=== PATIENT | male | born 1940 | race Caucasian/White ===

== ENCOUNTER 2022-01-05 11:59 | Inpatient (IN) ==
[2022-01-05] MEDS ORDERED: 0.9 % SODIUM CHLORIDE 1,000 ML IV ONE (12:10)
[2022-01-05 12:26] LABS: POC Calcium, Ionized 1.23 (1.16-1.32); POC Creatinine 1.4 (0.6-1.2); POC Potassium 4.4 (3.3-5.1)
[2022-01-05 13:03] LABS: POC Calcium, Ionized 1.2 (1.16-1.32); POC Creatinine 1.4 (0.6-1.2); POC Potassium 4.7 (3.3-5.1)
--- NOTE | 2022-01-05 13:32 | XRay Report ---
CLINICAL INFORMATION: Dyspnea COMPARISON: 06/29/2021 and 09/14/2020 TECHNIQUE: Portable FINDINGS: Sternotomy noted. Cardiomediastinal silhouette is unremarkable. Large bullae dominates the right mid and lower lung region. There is moderate, predominantly interstitial, disease throughout the left lung and the right upper lobe which has worsened. Suspect, this represents edema superimposed upon interstitial fibrosis. Pulmonary vessels are obscured by the edema may be mildly distended. Right diaphragm is chronically elevated. No definite effusion. IMPRESSION: Suspect congestive heart failure superimposed upon interstitial fibrosis and COPD. Please correlate with physical exam findings and possibly serological BNP. This could also represent diffuse infection or inflammation superimposed upon interstitial fibrosis and COPD. Interpreted and Authenticated by: Christian Holt 01/05/22
--- NOTE | 2022-01-05 13:37 | Cat Scan Report ---
CLINICAL INFORMATION: Altered mental status. History of CVA COMPARISON: Brain MRI 12/30/2021 TECHNIQUE: 2.5 mm helical slices were obtained in the skull base to vertex. Following reconstruction, axial reformatted images were reviewed at bone and parenchymal windows. The exam was performed using radiation dose optimization techniques including, but not limited to, automated exposure control, adjustment of the mA and/or kV according to patient size and use of iterative reconstruction technique. FINDINGS: The ventricles, sulci, fissures, and cisterns are symmetrically enlarged compatible with moderate age-related atrophy. No extra-axial fluid collections are identified. Moderate patchy chronic ischemic changes, in the deep cerebral white matter, are expected for age. Moderate size remote infarct in the left parietal-occipital junction again noted There is no hemorrhage, mass effect, or edema. Bone windows show no osseous abnormality. IMPRESSION: Moderate atrophy and chronic ischemic changes in the deep cerebral white matter-expected for age. Moderate remote infarct left temporal occipital junction-again noted. No acute findings Interpreted and Authenticated by: Christian Holt 01/05/22
[2022-01-05] MEDS: LACTATED RINGERS 1,000 ML IV SCH ×3 (13:39→17:43)
--- NOTE | 2022-01-05 13:47 | Cat Scan Report ---
CLINICAL INFORMATION: Back pain following trauma COMPARISON: None. TECHNIQUE: 0.625 mm helical slices were obtained from the mid C7 to the mid L1 vertebral bodies. Following reconstruction, 2.5 mm coronal, sagittal, and axial reformations (angle to the disc spaces) were processed. Exam was reviewed at bone and soft tissue windows.The exam was performed using radiation dose optimization techniques including, but not limited to, automated exposure control, adjustment of the mA and/or kV according to patient size and use of iterative reconstruction technique. FINDINGS: The thoracic spine is normal in curvature and alignment. Minimal chronic wedging of the T1-T6 vertebral bodies appreciated. No acute fractures. The thoracic cord is unremarkable. The lungs are incompletely imaged but show moderate mixed interstitial/alveolar airspace disease in the visualized central aspect of the lungs. There is also interstitial fibrosis, pulmonary vascular congestion and severe bronchiectasis in the right upper lobe. At C6-7, moderate broad disc spur complex results in moderate central canal severe left and moderate right IV foraminal thickening of the exiting left C7 nerve root. Thoracic disc show degeneration without significant protrusion or extrusion. Central canal and IV foramen are normal width at all thoracic levels. IMPRESSION: 1. No acute fracture or other acute posttraumatic change. Mild chronic wedging of the T1-T6 vertebral bodies. 2. C6-7: Moderate broad disc spur complex resulting in moderate central canal, severe left and moderate right IV foraminal narrowing. Impingement of the exiting left C7 nerve root. There are minimal calcified protrusions at T7-T8 and T8-9 but no central canal or IV foraminal narrowing. Interpreted and Authenticated by: Christian Holt 01/05/22
[2022-01-05 14:19] LABS: Alcohol, Blood < 10.0 mg/dL; Alcohol,Blood < 0.010 gm/dL (<0.010)
--- NOTE | 2022-01-05 14:21 | Emergency Department Note ---
Altered Mental Status HPI General Chief Complaint: Altered Mental Status Stated Complaint: Confusion Time Seen by Provider: 01/05/22 12:01 Source: patient, EMS and other (Longtime friend) Mode of arrival: EMS Limitations: altered mental status History of Present Illness HPI Narrative: William Cortes is an 81-year-old male who presents emergency department via EMS with altered mental status. He is an unreliable historian. The patient reports he fell out of his rocking chair this morning at approximately 8:30 AM, and was found in his chair at 10 AM by his longtime friend. The patient reports he "fell through the floor." He says he was "seeing spots" after his fall. He denies loss of consciousness. He denies striking his head. The patient reports he is having no pain. The patient's friend reports that the patient had 2 shots of whiskey this morning, and he is unsure if this is normal. The patient's friend reports that he has a significant number of medications in blister packs. No medications were brought in by EMS. Patient denies headache, chest pain, back pain, extremity pain, nausea, vomiting, black or bloody stools, diarrhea, constipation, and all other acute complaints at this time. Given this, the patient is unclear of what city he is in, despite the fact that he is lived here for decades. MD complaint: altered mental status and confusion Onset (ago): hour(s) Treatments prior to arrival: IV fluid Related Data Home Medications Medication Instructions Recorded Confirmed benazepril 20 mg tablet 20 mg PO QDAY 09/24/15 12/29/21 blood sugar diagnostic (Accu-Chek 09/24/15 12/29/21 Marivel Plus test strips) clopidogrel 75 mg tablet (Plavix) 75 mg PO QDAY 09/24/15 12/29/21 pantoprazole 40 mg tablet,delayed 40 mg PO QDAY 09/24/15 12/29/21 release fluticasone propionate 50 2 spray intranasal QDAY 04/19/20 12/29/21 mcg/actuation nasal spray,suspension gabapentin 300 mg capsule 600 mg PO QHS 04/19/20 12/29/21 meloxicam 7.5 mg tablet 7.5 mg PO QDAY 12/17/20 12/29/21 Previous Rx's Medication Instructions Recorded fluticasone fur. 100 mcg-umeclid 1 inh inhalation Q24H #60 ea 12/29/21 62.5 mcg-vilant 25 mcg inhalat.powder (Trelegy Ellipta) Allergies Allergy/AdvReac Type Severity Reaction Status Date / Time hydroxyzine [From Vistaril] Allergy Severe Unknown Verified 01/05/22 12:00 meperidine [From Demerol] Allergy Severe Unknown Verified 01/05/22 12:00 oxycodone [From Percodan] Allergy Severe Unknown Verified 01/05/22 12:00 propoxyphene Allergy Severe Unknown Verified 01/05/22 12:00 [From Darvocet-N] Review of Systems ROS ROS Narrative: Narrative: Limitations: ROS unobtainable due to patients medical condition (Altered mental status, unreliable historian.) PFSH Narrative Patient History Narrative: Narrative: Medical/Surgical/Family History All Active Problems CAD (coronary artery disease) (Chronic) COPD (chronic obstructive pulmonary disease) (Chronic) Essential hypertension (Chronic) Pulmonary fibrosis (Chronic) Arthritis, lumbar spine (Chronic) Spinal stenosis, lumbar (Chronic) KRISTOPHRE (obstructive sleep apnea) (Chronic) CPAP/BiPAP dependence (Chronic) Periodic limb movement disorder (Chronic) 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) BPH (benign prostatic hyperplasia) (Chronic) GERD (gastroesophageal reflux disease) (Chronic) History of adenomatous polyp of colon (Chronic) Hyperlipidemia (Chronic) Low back pain (Chronic) Bladder obstruction (Chronic) History of transient ischemic attack (Chronic) Erectile dysfunction (Chronic) Lumbar back pain (Chronic) Degenerative disc disease at L5-S1 level (Chronic) Leg weakness, bilateral (Chronic) Pulmonary congestion (Chronic) Pure hypercholesterolemia (Chronic) Unspecified dysplasia of prostate (Chronic) custodial (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 (Chronic) Fall from toilet seat (Chronic) Ribs, multiple fractures (Chronic) Pulmonary infiltrate (Chronic) Prostate irregularity (Chronic) Elevated PSA (Chronic) BPH without obstruction/lower urinary tract symptoms (Chronic) Bladder outlet obstruction (Chronic) Poor urinary stream (Chronic) Pressure ulcer, buttock (Chronic) Skin infection (Chronic) custodial (current) use of opiate analgesic (Chronic) 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 (Chronic) Dependence on supplemental oxygen (Chronic) Other emphysema (Chronic) Other allergic rhinitis (Chronic) Status post coronary artery bypass graft (Chronic) History of percutaneous transluminal coronary angioplasty (Chronic) Memory impairment (Chronic) Other polyuria (Chronic) Diastasis recti (Chronic) Sinus tarsi syndrome (Chronic) Multiple fractures of ribs of left side (Chronic) Chronic low back pain (Chronic) Pain in toes of both feet (Chronic) Pain in joints of both feet (Chronic) Other specified dermatitis (Chronic) Hallux rigidus, acquired (Chronic) Onychomycosis (Chronic) Seborrheic dermatitis (Chronic) History of CVA (cerebrovascular accident) (Chronic) Contact dermatitis and eczema (Chronic) Dermatitis, perioral (Chronic) Anterior chest wall pain (Chronic) Inguinal hernia (Chronic) Difficulty urinating (Chronic) Groin pain (Chronic) Pain of both hip joints (Chronic) Overweight (Chronic) Rosacea (Chronic) Exostosis (Chronic) Interstitial lung disease (Chronic) Diverticulosis (Chronic) Left rib fracture (Chronic) Chills (Chronic) Dysuria (Chronic) Urinary hesitancy (Chronic) Stiffness in joint (Chronic) Joint pain (Chronic) Back pain (Chronic) BPH with obstruction/lower urinary tract symptoms (Chronic) Elevated PSA (Acute) Weakness (Chronic) Decubitus ulcer (Chronic) History of tobacco use (Acute) Non compliance w medication regimen (Chronic) Infected wound (Acute) Gluteal pain (Acute) Medicare annual wellness visit, subsequent (Acute) Diabetes mellitus with neuropathy (Chronic) Acute facial pain (Acute) Acute leg pain (Acute) Altered mental status (Acute) Self-care deficit for medication management (Acute) Medical History (Updated 01/05/22 @ 18:23 by Maria Eugenia Porter PA-C) Alcohol abuse Suggested by neighbors, patient denies 09/09 Anterior chest wall pain Arthritis, lumbar spine Atypical chest pain Back pain Bladder obstruction Progressive bladder outlet obstruction Bladder outlet obstruction BPH without obstruction/lower urinary tract symptoms CAD (coronary artery disease) s/p CABG Chills Chronic low back pain Colonic polyp Contact dermatitis and eczema COPD (chronic obstructive pulmonary disease) CPAP/BiPAP dependence Degenerative disc disease at L5-S1 level Dependence on supplemental oxygen Nocturnal Dermatitis, perioral Diabetes mellitus with neuropathy Diastasis recti Difficulty urinating Diverticulosis Dyspnea Dysuria Elevated PSA Erectile dysfunction Essential hypertension Exostosis Fall from toilet seat Gastric mucosal hypertrophy without mention of hemorrhage GERD (gastroesophageal reflux disease) Groin pain Hallux rigidus, acquired Heartburn History of adenomatous polyp of colon History of CVA (cerebrovascular accident) History of esophageal stricture History of tobacco use quit ~ 1989 History of transient ischemic attack Hyperlipidemia Inguinal hernia Insomnia disorder related to known organic factor Interstitial lung disease Joint pain Left rib fracture Leg weakness, bilateral custodial (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 Clopidogrel (Plavix) 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 custodial (current) use of opiate analgesic Low back pain Lumbar back pain Medicare annual wellness visit, subsequent Memory impairment Migraine headache Multiple fractures of ribs of left side Non compliance w medication regimen Onychomycosis KRISTOPHER (obstructive sleep apnea) Other allergic rhinitis Other emphysema Other polyuria Other specified dermatitis Overweight Pain in joints of both feet Pain in toes of both feet Pain of both hip joints Periodic limb movement disorder Poor urinary stream Pressure ulcer, buttock Prostate irregularity Pulmonary congestion Pulmonary fibrosis Pulmonary infiltrate Pure hypercholesterolemia Pyloritis Ribs, multiple fractures Rosacea Seborrheic dermatitis Self-care deficit for medication management Sinus tarsi syndrome Skin infection SOB (shortness of breath) Spinal stenosis, lumbar Stiffness in joint TIA (transient ischemic attack) Unable to care for self Unspecified dysplasia of prostate Urinary hesitancy Surgical History H/O colonoscopy July 2011-diverticulosis and hyperplastic polyp-repeat 3 years hx rapid former adenomatous polyps. History of appendectomy (~1957) History of bilateral inguinal hernia repair 12/28/2020 History of carpal tunnel release Left, 1987 History of cataract extraction with IOL implants 1988 History of herniorrhaphy Hiatral 1988, Hiatal hernia-1996 History of hiatal hernia (~2009) Revision History of percutaneous transluminal coronary angioplasty History of rotator cuff surgery 1987 left; 1988 right; History of surgery Cystourethroscopy, urethral calibration History of surgery Right femoral tunnel release, 1988 Hx of CABG (~1992) Three-vessel; patient reports occurred after a lower extremity study with a piece of the catheter breaking off requiring intervention to retrieve it. Family History Father , at 85 from prostate cancer Prostate cancer Brother Diabetes High cholesterol Sister Asthma Family/Other Brain cancer Social History Smoking Status: Former smoker Alcohol Intake Frequency: does not drink Substance Use: does not use Exam Narrative Narrative: General: Alert, pleasant, conversant, NAD HEENT: Mask in place per COVID protocol, EOMI, PERRL Chest/respirations: Symmetric chest wall expansion, end expiratory rhonchi, adequate tidal volume and respiratory effort, speaks in complete paragraphs without difficulty CV: RRR/no MRG, cap refill less than 2 seconds Abdomen: NABs, soft, NT/ND Extremities: MAEW, equal strength bilaterally Skin: Normal warm and dry; at the lower back/flank on the right side, there is a skin tear consistent with the patient's described fall. Neuro: Oriented only to self. Patient reports today is Sunday, that he is at the hospital because he fell from his chair, but he does not know where we are. General Limitations: altered mental status Course Course Course Narrative: Patient presents to the emergency department via EMS, called by his friend of several decades because the patient was exhibiting altered mental status. The patient reports he fell out of his chair, was down for an unknown period of time this morning. The patient is oriented only to self. Despite being from this area, he states he does not know what town he is in. The patient reportedly had 2 shots of whiskey this morning, but no alcohol is detected in his blood. The patient has a heart rate around 60 and a blood pressure hovering around 80 systolic. Given the patient is an unreliable historian and a good exam is unable to obtain, significant imaging is ordered. At the time of admission, talk screen remains pending. No urine has been collected, so UA has not been completed. As the labs have finally returned, it is noted red blood cell count is 11.5 with a left shift at 82.3% and absolute neutrophils at 9.49. Hematocrit is within reference range and platelets are 218. Creatinine is elevated at 1.4, glucose is 156, and troponin is negative at less than 0.02. It is at this point that the patient is accepted for admission by Dr. Thomas, and further lab testing is sought, including ammonia level, blood cultures, venous lactic acid, VBG, and ProBNP. Reevaluation(s) Reevaluation #1: Still trying to obtain an accurate med list for this patient. His pharmacy has been contacted. A second pharmacy has been contacted. Awaiting a callback from the patient's neighbor who has access to his home and the "load" of medications he has in blister packs. Time: 14:30 Reevaluation #2: pt accepted for admission by Dr Thomas at 1715 Vital Signs Vital signs: Vital Signs Temperature 95.5 F L 01/05/22 12:00 Pulse Rate 55 L 01/05/22 12:00 Respiratory Rate 20 01/05/22 12:00 Blood Pressure 78/35 01/05/22 12:00 Pulse Oximetry (%) 95 01/05/22 12:00 Oxygen Delivery Method 01/05/22 12:00 Temperature 95.5 F L 01/05/22 12:00 Pulse Rate 56 L 01/05/22 14:20 Respiratory Rate 18 01/05/22 17:42 Blood Pressure 104/62 01/05/22 17:42 Pulse Oximetry (%) 97 01/05/22 14:20 Oxygen Delivery Method 01/05/22 12:26 MDM MDM Narrative Medical decision making narrative: Narrative: Lab Data Result diagrams: 01/05/22 12:35 Labs: Lab Results 01/05/22 01/05/22 01/05/22 Range/Units 12:24 12:35 12:45 WBC 11.5 H (4.5-11.0) K/mcL RBC 4.70 (4.63-6.08) M/mcL Hgb 15.1 (13.7-17.5) g/dL Hct 44.9 (40.1-51.0) % POC Hct 43.0 (41-55) MCV 95.5 (80.0-100.0) fL MCH 32.1 (26.0-34.0) pg MCHC 33.6 (31.0-36.0) g/dL RDW 12.7 (11.5-14.5) % Plt Count 218 (140-440) K/mcL MPV 9.0 (8.8-12.5) fL Immature Gran % (Auto) 0.5 (0.0-0.5) % Neut % (Auto) 82.3 H (38.0-78.0) % Lymph % (Auto) 11.4 L (15.5-49.0) % [place] % (Auto) 5.2 (1.0-12.0) % Eos % (Auto) 0.3 (0.0-7.0) % Baso % (Auto) 0.3 (0.0-2.0) % Lymph # (Auto) 1.31 L (1.50-4.80) K/mcL [place] # (Auto) 0.60 (0.10-0.90) K/mcL Eos # (Auto) 0.04 (0.00-0.70) K/mcL Baso # (Auto) 0.04 (0.00-0.30) K/mcL Immature Gran # 0.06 H (0.00-0.05) K/mcl Absolute Neutrophils 9.49 H (1.80-8.00) K/mcL ABG Methemoglobin (0.4-1.5) % VBG pH (7.32-7.42) U VBG pCO2 (41.0-51.0) mmHg VBG pO2 (25.0-40.0) mmHg VBG HCO3 (24.0-28.0) mmol/L VBG Total CO2 (25.0-29.0) mmol/L VBG O2 Saturation (40.0-70.0) % VBG Base Excess (-2-3) Carboxyhemoglobin (0.0-1.5) % THgb Total Hemoglobin (13.5-16.5) gm/Dl POC Sodium 138 (133-145) POC Potassium 4.4 (3.3-5.1) POC Chloride 101 (96-108) POC Total CO2 28.0 (22-30) POC BUN 13 (6-20) POC Creatinine 1.4 H (0.6-1.2) POC Glucose 172 H (70-105) POC WB Ioniz Calcium 1.23 (1.16-1.32) Ethyl Alcohol mg/dL < 10.0 mg/dL Ethyl Alcohol g/dL < 0.010 (<0.010) gm/dL POC Troponin I (0.00-0.08) 01/05/22 01/05/22 01/05/22 Range/Units 12:51 12:59 17:45 WBC (4.5-11.0) K/mcL RBC (4.63-6.08) M/mcL Hgb (13.7-17.5) g/dL Hct (40.1-51.0) % POC Hct 40.0 L (41-55) MCV (80.0-100.0) fL MCH (26.0-34.0) pg MCHC (31.0-36.0) g/dL RDW (11.5-14.5) % Plt Count (140-440) K/mcL MPV (8.8-12.5) fL Immature Gran % (Auto) (0.0-0.5) % Neut % (Auto) (38.0-78.0) % Lymph % (Auto) (15.5-49.0) % [place] % (Auto) (1.0-12.0) % Eos % (Auto) (0.0-7.0) % Baso % (Auto) (0.0-2.0) % Lymph # (Auto) (1.50-4.80) K/mcL [place] # (Auto) (0.10-0.90) K/mcL Eos # (Auto) (0.00-0.70) K/mcL Baso # (Auto) (0.00-0.30) K/mcL Immature Gran # (0.00-0.05) K/mcl Absolute Neutrophils (1.80-8.00) K/mcL ABG Methemoglobin 0.1 L (0.4-1.5) % VBG pH 7.36 (7.32-7.42) U VBG pCO2 44.4 (41.0-51.0) mmHg VBG pO2 48.5 H (25.0-40.0) mmHg VBG HCO3 24.5 (24.0-28.0) mmol/L VBG Total CO2 25.8 (25.0-29.0) mmol/L VBG O2 Saturation 81.1 H (40.0-70.0) % VBG Base Excess -1 (-2-3) Carboxyhemoglobin 5.2 H (0.0-1.5) % THgb Total Hemoglobin 14.4 (13.5-16.5) gm/Dl POC Sodium 138 (133-145) POC Potassium 4.7 (3.3-5.1) POC Chloride 102 (96-108) POC Total CO2 28.0 (22-30) POC BUN 13 (6-20) POC Creatinine 1.4 H (0.6-1.2) POC Glucose 156 H (70-105) POC WB Ioniz Calcium 1.20 (1.16-1.32) Ethyl Alcohol mg/dL mg/dL Ethyl Alcohol g/dL (<0.010) gm/dL POC Troponin I < 0.02 (0.00-0.08) ED POC Tests ED POC Tests: SERGE - Influenza A Negative SERGE - Influenza B Negative SERGE - SARS Antigen Negative Discharge Plan Patient/Caregiver Discharge Instructions Pt seen by BARREL [employer] SOLDERER/PA only: Yes Clinical Impression: Altered mental status Patient Disposition: Still a Patient Follow up with: Dax Zheng MD [Primary Care Provider] - Prescriptions: No Action clopidogrel [Plavix] 75 mg tablet 75 mg PO QDAY (DME) blood sugar diagnostic [Accu-Chek Marivel Plus test strp] strip See Dose Instructions .ROUTE .MEDSUPPLY Rx Instructions: As directed pantoprazole 40 mg tablet,delayed release (DR/EC) 40 mg PO QDAY benazepril 20 mg tablet 20 mg PO QDAY gabapentin 300 mg capsule 600 mg PO QHS fluticasone propionate 50 mcg/actuation spray,suspension 2 spray intranasal QDAY Rx Instructions: administer into each nostril meloxicam 7.5 mg tablet 7.5 mg PO QDAY Trelegy Ellipta 100-62.5-25 mcg blister with device 1 inh inhalation Q24H Qty: 60 11RF Hold Instructions: Doctor's Order
[2022-01-05 14:57] LABS: Basophils # (Auto) 0.04 K/mcL (0.00-0.30); Basophils % (Auto) 0.3 % (0.0-2.0); Eosinophils # (Auto) 0.04 K/mcL (0.00-0.70); Eosinophils % (Auto) 0.3 % (0.0-7.0); Hematocrit 44.9 % (40.1-51.0); Hemoglobin 15.1 g/dL (13.7-17.5); Lymphocytes # (Auto) 1.31 K/mcL (1.50-4.80); Lymphocytes % (Auto) 11.4 % (15.5-49.0); Mean Cell Volume 95.5 fL (80.0-100.0); Mean Corpuscular HGB Conc 33.6 g/dL (31.0-36.0); Monocytes % (Auto) 5.2 % (1.0-12.0); Neutrophils % (Auto) 82.3 % (38.0-78.0); Platelet Count 218 K/mcL (140-440); Red Cell Distribution Width 12.7 % (11.5-14.5); WBC 11.5 K/mcL (4.5-11.0)
--- NOTE | 2022-01-05 15:04 | Cat Scan Report ---
CLINICAL INFORMATION: Trauma COMPARISON: Plain films 12/22/2015 TECHNIQUE: 0.625 mm helical slices were obtained from the mid T12 through mid S2 vertebral bodies. Following reconstruction, 2.5 mm coronal, sagittal, and axial reformations (angle to the disc spaces) were processed. Exam was reviewed at bone and soft tissue windows.The exam was performed using radiation dose optimization techniques including, but not limited to, automated exposure control, adjustment of the mA and/or kV according to patient size and use of iterative reconstruction technique. FINDINGS: Moderate dextroscoliosis of the lumbar spine with the apex at approximate L2 appreciated. This progressed since the 2016 plain films. There is minimal chronic left lateral wedging of the L2-L3 and L4 vertebral bodies. No acute fracture. No celiac soft tissue abnormality. The T11-T12 and T12-L1 disc levels are normal. At L1-2, mild broad disc protrusion results in mild central canal and bilateral IV foraminal narrowing At L2-3, moderate broad disc protrusion with left-sided asymmetry and facet arthropathy result in moderate central canal and severe left lateral recess left IV foraminal narrowing with exiting left L2 and descending left L3 nerve root impingement. At L3-4, moderate broad disc protrusion with left-sided asymmetry and facet arthropathy result in moderate central canal and moderate bilateral lateral recess and IV foraminal narrowing. There is exiting L3 and descending L4 nerve root impingement At L4-5, moderate broad disc protrusion left-sided asymmetry facet arthropathy result in moderate central canal and severe right lateral recess and IV foraminal narrowing with impingement exiting right L4 and descending right L5 nerve roots. At L5-S1, moderate broad disc protrusion results in moderate right and mild left IV foraminal and mild central canal narrowing. There is impingement exiting L5 nerve roots. IMPRESSION: 1. No acute fracture or other acute posttraumatic change. 2. Multilevel degeneration. Interpreted and Authenticated by: Christian Holt 01/05/22
--- NOTE | 2022-01-05 17:56 | Internal Med History&Physical ---
HPI History of Present Illness Patient information: Note initiated : 01/05/22 at 5:43 pm Service Date, if different from initiated Date: [] Patient: William Cortes 81 y/o M admitted on for Confusion. Chief Complaint: [] History of present illness: Mr. Cortes is a 81 year old male with a history of hypertension, interstitial lung disease, COPD, CVA, degenerative disc disease, probable cognitive impairment, possible alcohol use disorder who was brought to the emergency department for a change in mental status. The patient reportedly fell out of his chair this morning. He reportedly had 2 shots of whiskey in the morning which is unusual for him. In the emergency department, the patient was initially hypotensive and given IV fluid. Temperature was 95.5 Fahrenheit, the patient had a mild leukocytosis of 11,500. The patient's creatinine was 1.4 consistent with an acute kidney injury. EKG showed sinus bradycardia with a heart rate of 58, no acute ischemic changes. Troponin was normal. Alcohol level was normal. Radiology reported the chest x-ray showing suspected congestive heart failure superimposed on interstitial fibrosis and COPD. CT head did not show any acute changes, there was a remote left temporal occipital junction infarct. The patient had an MRI brain without contrast on 12/30/2021 that showed an old infarct in the left temporal occipital boundary. The patient had a thoracic and lumbar spine without contrast that showed degenerative disc disease but no acute fractures. The patient's blood pressure did improve somewhat after IV fluid. Hospital medicine was consulted for hospital admission. The patient is unable to provide a good history, and is unclear what his baseline cognitive status is however review of the available clinic visit documentation suggest that he probably has significant cognitive impairment at baseline. Review of systems: Unable to obtain due to altered mental status. Physical exam Head: Atraumatic, normal inspection. Eyes: normal appearance, no scleral icterus. Neck: full ROM Respiratory: Bilateral crackles, no respiratory distress. Cardiovascular: Sternotomy scar, normal rate and rhythm, S1, S2. GI/Abdominal: soft, nontender, no guarding. Extremities: full range of motion, nontender. Neurological: CN II-XII intact, intact motor, intact sensation. Psychiatric: Impaired cognition and memory. 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) BPH (benign prostatic hyperplasia) (Chronic) GERD (gastroesophageal reflux disease) (Chronic) History of adenomatous polyp of colon (Chronic) Hyperlipidemia (Chronic) Low back pain (Chronic) Bladder obstruction (Chronic) History of transient ischemic attack (Chronic) Erectile dysfunction (Chronic) Lumbar back pain (Chronic) Degenerative disc disease at L5-S1 level (Chronic) Leg weakness, bilateral (Chronic) Pulmonary congestion (Chronic) Pure hypercholesterolemia (Chronic) Unspecified dysplasia of prostate (Chronic) termite helper (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 (Chronic) Fall from toilet seat (Chronic) Ribs, multiple fractures (Chronic) Pulmonary infiltrate (Chronic) Prostate irregularity (Chronic) Elevated PSA (Chronic) BPH without obstruction/lower urinary tract symptoms (Chronic) Bladder outlet obstruction (Chronic) Poor urinary stream (Chronic) Pressure ulcer, buttock (Chronic) Skin infection (Chronic) alf (current) use of opiate analgesic (Chronic) termite helper (current) use of 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 (Chronic) Dependence on supplemental oxygen (Chronic) Other emphysema (Chronic) Other allergic rhinitis (Chronic) Status post coronary artery bypass graft (Chronic) History of percutaneous transluminal coronary angioplasty (Chronic) Memory impairment (Chronic) Other polyuria (Chronic) Diastasis recti (Chronic) Sinus tarsi syndrome (Chronic) Multiple fractures of ribs of left side (Chronic) Chronic low back pain (Chronic) Pain in toes of both feet (Chronic) Pain in joints of both feet (Chronic) Other specified dermatitis (Chronic) Hallux rigidus, acquired (Chronic) Onychomycosis (Chronic) Seborrheic dermatitis (Chronic) History of CVA (cerebrovascular accident) (Chronic) Contact dermatitis and eczema (Chronic) Dermatitis, perioral (Chronic) Anterior chest wall pain (Chronic) Inguinal hernia (Chronic) Difficulty urinating (Chronic) Groin pain (Chronic) Pain of both hip joints (Chronic) Overweight (Chronic) Rosacea (Chronic) Exostosis (Chronic) Interstitial lung disease (Chronic) Diverticulosis (Chronic) Left rib fracture (Chronic) Chills (Chronic) Dysuria (Chronic) Urinary hesitancy (Chronic) Stiffness in joint (Chronic) Joint pain (Chronic) Back pain (Chronic) BPH with obstruction/lower urinary tract symptoms (Chronic) Elevated PSA (Acute) Weakness (Chronic) Decubitus ulcer (Chronic) History of tobacco use (Acute) Non compliance w medication regimen (Chronic) Infected wound (Acute) Gluteal pain (Acute) Medicare annual wellness visit, subsequent (Acute) Diabetes mellitus with neuropathy (Chronic) Acute facial pain (Acute) Acute leg pain (Acute) Altered mental status (Acute) Self-care deficit for medication management (Acute) Medical History (Updated 01/05/22 @ 18:23 by Maria Eugenia Porter PA-C) Alcohol abuse Suggested by neighbors, patient denies 09/09 Anterior chest wall pain Arthritis, lumbar spine Atypical chest pain Back pain Bladder obstruction Progressive bladder outlet obstruction Bladder outlet obstruction BPH without obstruction/lower urinary tract symptoms CAD (coronary artery disease) s/p CABG Chills Chronic low back pain Colonic polyp Contact dermatitis and eczema COPD (chronic obstructive pulmonary disease) CPAP/BiPAP dependence Degenerative disc disease at L5-S1 level Dependence on supplemental oxygen Nocturnal Dermatitis, perioral Diabetes mellitus with neuropathy Diastasis recti Difficulty urinating Diverticulosis Dyspnea Dysuria Elevated PSA Erectile dysfunction Essential hypertension Exostosis Fall from toilet seat Gastric mucosal hypertrophy without mention of hemorrhage GERD (gastroesophageal reflux disease) Groin pain Hallux rigidus, acquired Heartburn History of adenomatous polyp of colon History of CVA (cerebrovascular accident) History of esophageal stricture History of tobacco use quit ~ 1989 History of transient ischemic attack Hyperlipidemia Inguinal hernia Insomnia disorder related to known organic factor Interstitial lung disease Joint pain Left rib fracture Leg weakness, bilateral termite helper (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 Clopidogrel (Plavix) termite helper (current) use of 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 alf (current) use of opiate analgesic Low back pain Lumbar back pain Medicare annual wellness visit, subsequent Memory impairment Migraine headache Multiple fractures of ribs of left side Non compliance w medication regimen Onychomycosis KRISTOPHER (obstructive sleep apnea) Other allergic rhinitis Other emphysema Other polyuria Other specified dermatitis Overweight Pain in joints of both feet Pain in toes of both feet Pain of both hip joints Periodic limb movement disorder Poor urinary stream Pressure ulcer, buttock Prostate irregularity Pulmonary congestion Pulmonary fibrosis Pulmonary infiltrate Pure hypercholesterolemia Pyloritis Ribs, multiple fractures Rosacea Seborrheic dermatitis Self-care deficit for medication management Sinus tarsi syndrome Skin infection SOB (shortness of breath) Spinal stenosis, lumbar Stiffness in joint TIA (transient ischemic attack) Unable to care for self Unspecified dysplasia of prostate Urinary hesitancy Surgical History H/O colonoscopy July 2011-diverticulosis and hyperplastic polyp-repeat 3 years hx rapid former adenomatous polyps. History of appendectomy (~195) History of bilateral inguinal hernia repair 12/28/2020 History of carpal tunnel release Left, 1987 History of cataract extraction with IOL implants 1988 History of herniorrhaphy Hiatral 1988, Hiatal hernia-1996 History of hiatal hernia (~2009) Revision History of percutaneous transluminal coronary angioplasty History of rotator cuff surgery 1987 left; 1988 right; History of surgery Cystourethroscopy, urethral calibration History of surgery Right femoral tunnel release, 1988 Hx of CABG (~1992) Three-vessel; patient reports occurred after a lower extremity study with a piece of the catheter breaking off requiring intervention to retrieve it. 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 smoking status: Former smoker smoking status start date: 02/19/58 smoking status stop date: 02/19/89 alcohol intake frequency: does not drink substance use type: does not use MEDS/ALLERGIES Home Medications and Allergies Home Medications Medication Instructions Recorded Confirmed Type benazepril 20 mg tablet 20 mg PO QDAY 09/24/15 12/29/21 History blood sugar diagnostic (Accu-Chek 09/24/15 12/29/21 History Marivel Plus test strips) clopidogrel 75 mg tablet (Plavix) 75 mg PO QDAY 09/24/15 12/29/21 History pantoprazole 40 mg tablet,delayed 40 mg PO QDAY 09/24/15 12/29/21 History release fluticasone propionate 50 2 spray intranasal QDAY 04/19/20 12/29/21 History mcg/actuation nasal spray,suspension gabapentin 300 mg capsule 600 mg PO QHS 04/19/20 12/29/21 History meloxicam 7.5 mg tablet 7.5 mg PO QDAY 12/17/20 12/29/21 History fluticasone fur. 100 mcg-umeclid 1 inh inhalation Q24H #60 ea 12/29/21 12/29/21 Rx 62.5 mcg-vilant 25 mcg inhalat.powder (Trelegy Ellipta) Allergies Allergy/AdvReac Type Severity Reaction Status Date / Time hydroxyzine [From Vistaril] Allergy Severe Unknown Verified 01/05/22 12:00 meperidine [From Demerol] Allergy Severe Unknown Verified 01/05/22 12:00 oxycodone [From Percodan] Allergy Severe Unknown Verified 01/05/22 12:00 propoxyphene Allergy Severe Unknown Verified 01/05/22 12:00 [From Darvocet-N] EXAM Constitutional Vitals: Temp Pulse Resp BP Pulse Ox O2 Del Method 95.5 F L 56 L 18 104/62 97 01/05/22 12:00 01/05/22 14:20 01/05/22 17:42 01/05/22 17:42 01/05/22 14:20 01/05/22 12:26 DATA Data Completed and Pending Labs: Labs from last 24 hours 01/05/22 01/05/22 01/05/22 12:59 12:51 12:45 WBC RBC Hgb Hct POC Hct 40.0 L MCV MCH MCHC RDW Plt Count MPV Immature Gran % (Auto) Neut % (Auto) Lymph % (Auto) [place] % (Auto) Eos % (Auto) Baso % (Auto) Lymph # (Auto) [place] # (Auto) Eos # (Auto) Baso # (Auto) Immature Gran # Absolute Neutrophils POC Sodium 138 POC Potassium 4.7 POC Chloride 102 POC Total CO2 28.0 POC BUN 13 POC Creatinine 1.4 H POC Glucose 156 H POC WB Ioniz Calcium 1.20 Ethyl Alcohol mg/dL < 10.0 Ethyl Alcohol g/dL < 0.010 POC Troponin I < 0.02 01/05/22 01/05/22 12:35 12:24 WBC 11.5 H RBC 4.70 Hgb 15.1 Hct 44.9 POC Hct 43.0 MCV 95.5 MCH 32.1 MCHC 33.6 RDW 12.7 Plt Count 218 MPV 9.0 Immature Gran % (Auto) 0.5 Neut % (Auto) 82.3 H Lymph % (Auto) 11.4 L [place] % (Auto) 5.2 Eos % (Auto) 0.3 Baso % (Auto) 0.3 Lymph # (Auto) 1.31 L [place] # (Auto) 0.60 Eos # (Auto) 0.04 Baso # (Auto) 0.04 Immature Gran # 0.06 H Absolute Neutrophils 9.49 H POC Sodium 138 POC Potassium 4.4 POC Chloride 101 POC Total CO2 28.0 POC BUN 13 POC Creatinine 1.4 H POC Glucose 172 H POC WB Ioniz Calcium 1.23 Ethyl Alcohol mg/dL Ethyl Alcohol g/dL POC Troponin I A/P Narrative A/P Narrative: Assessment: 81 year old male with a history of hypertension, interstitial lung disease, COPD, CVA, degenerative disc disease, probable cognitive impairment, possible alcohol use disorder who was brought to the emergency department for a change in mental status. #Altered mental status/encephalopathy #Ground-level fall #Acute kidney injury #Hypotension #Leukocytosis, possibly stress induced #Interstitial lung disease #COPD, stable #History of left temporal/occipital stroke #Possible vulnerable adult #Probable moderate to severe cognitive impairment Plan -Check VBG, lactic acid, ammonia level, BNP. -Urinalysis with reflex to culture. -Received IV fluids in the ED, monitor blood pressure. -Follow renal function after IV fluid challenge in the ED. -Follow WBC. -Florencia COVID and influenza, if negative consider respiratory virus panel. -Follow blood cultures. -Urine drug screen. -Low threshold to start empiric antibiotics. -Scheduled DuoNebs and as needed albuterol nebs for now. -Monitor for alcohol withdrawal symptoms. -Avoid additional psychotropic medications if possible. -Home medication reconciliation, continue important medications. -PT and OT consult. -DVT prophylaxis: Heparin SQ -Disposition: TBD Time Spent With Patient Time: Total time spent is greater than 50% in coordination of care (as documented) at patient's floor/unit and/or counseling patient:
--- NOTE | 2022-01-05 18:18 | EKG ---
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
[2022-01-05 18:19] LABS: ABG Methemoglobin 0.1 % (0.4-1.5); Total Hemoglobin 14.4 gm/Dl (13.5-16.5); VBG Base Excess -1 (-2-3); VBG HCO3 24.5 mmol/L (24.0-28.0); VBG Oxygen Saturation 81.1 % (40.0-70.0); VBG PCO2 44.4 mmHg (41.0-51.0); VBG PH 7.36 U (7.32-7.42); VBG PO2 48.5 mmHg (25.0-40.0); VBG Total CO2 25.8 mmol/L (25.0-29.0)
[2022-01-05 18:55] LABS: proBNP 200.8 pg/mL (<450.0)
[2022-01-05] MEDS ORDERED: ALBUTEROL SULFATE 2.5 MG/3 ML NEBULIZER NEB PRN (20:24)
[2022-01-05] MEDS ORDERED: ONDANSETRON 4 MG/2 ML VIAL IV PRN (20:24)
[2022-01-05] MEDS: ACETAMINOPHEN 325 MG TABLET PO PRN (21:16)
[2022-01-05] MEDS ORDERED: ACETAMINOPHEN 325 MG TABLET PO ONE (21:21)
[2022-01-05] MEDS: IPRATROPIUM/ALBUTEROL 3 ML AMPUL.NEB NEB SCH (21:25)
[2022-01-05] MEDS ORDERED: IPRATROPIUM/ALBUTEROL 3 ML AMPUL.NEB NEB ONE (21:34)
[2022-01-05 22:29] LABS: Amphetamine Screen,Urine None detected; Barbiturate Screen,Urine None detected; Benzodiazepines Screen,Urine None detected; Cannabinoid Screen,Urine None detected; Cocaine Screen,Urine None detected; Opiate Screen,Urine None detected; Oxycodone, Urine Screen None detected; Phencyclidine Screen,Urine None detected
[2022-01-05] MEDS: SENNOSIDES 1 TABLET PO SCH (22:42)
[2022-01-05] MEDS: HEPARIN 5,000 UNIT/ML VIAL SQ SCH (22:42)
[2022-01-05] MEDS: DOCUSATE SODIUM 100 MG CAPSULE PO SCH (22:42)
[2022-01-05] MEDS: 0.9 % SODIUM CHLORIDE 10 ML SYRINGE IV SCH (22:43)
[2022-01-06] MEDS: IPRATROPIUM/ALBUTEROL 3 ML AMPUL.NEB NEB SCH ×2 (04:28→08:08)
[2022-01-06] MEDS: LACTATED RINGERS 1,000 ML IV SCH (06:49)
[2022-01-06 06:58] LABS: Hematocrit 38.1 % (40.1-51.0); Mean Cell Volume 94.5 fL (80.0-100.0); Mean Corpuscular HGB Conc 34.1 g/dL (31.0-36.0); Mean Platelet Volume 8.8 fL (8.8-12.5); Platelet Count 192 K/mcL (140-440); RBC 4.03 M/mcL (4.63-6.08); Red Cell Distribution Width 12.7 % (11.5-14.5)
[2022-01-06] MEDS: 0.9 % SODIUM CHLORIDE 10 ML SYRINGE IV SCH ×3 (07:06→20:20)
[2022-01-06 07:15] LABS: ALT/SGPT 16 U/L (<40); AST/SGOT 21 U/L (<40); Albumin 3.6 gm/dL (3.2-5.2); Albumin/Globulin Ratio 1.6 (1.0-2.3); Alkaline Phosphatase 80 U/L (39-117); Bilirubin,Direct < 0.2 mg/dL (0-0.3); Blood Urea Nitrogen 16 mg/dL (8-23); Calcium 9.4 mg/dL (8.6-10.4); Carbon Dioxide 27 mmol/L (22-30); Chloride 106 mmol/L (96-108); Globulin 2.2 gm/dL (2.2-3.7); Glomerular Filtration Rate 83; Glucose 92 mg/dL (70-105); Lactate Dehydrogenase 173 U/L (135-225); Phosphorous 3.7 mg/dL (2.5-4.5); Triglycerides 98 mg/dL (<150); Uric Acid 5.9 mg/dL (2.5-8.0)
[2022-01-06] MEDS: ACETAMINOPHEN 325 MG TABLET PO PRN ×2 (07:24→18:45)
[2022-01-06 08:42] LABS: Eosinophils % (Manual) 7 % (0-7); Lymphocytes % 25 % (15-49); Platelet Estimate NORMAL (Normal); RBC Morphology NORMAL (Normal); Segmented Neutrophils % 68 % (38-78)
[2022-01-06] MEDS: CLOPIDOGREL 75 MG TABLET PO SCH (10:04)
[2022-01-06] MEDS: HEPARIN 5,000 UNIT/ML VIAL SQ SCH ×2 (10:04→20:19)
[2022-01-06] MEDS: DOCUSATE SODIUM 100 MG CAPSULE PO SCH ×2 (10:04→20:19)
[2022-01-06] MEDS: TAMSULOSIN 0.4 MG CAPSULE PO SCH (10:04)
[2022-01-06] MEDS: ATORVASTATIN 20 MG TABLET PO SCH (10:04)
[2022-01-06] MEDS ORDERED: IPRATROPIUM/ALBUTEROL 3 ML AMPUL.NEB NEB PRN (12:11)
--- NOTE | 2022-01-06 14:18 | Internal Med Progress Note ---
SUBJECTIVE Subjective Patient information: Note initiated : 01/06/22 at 2:14 pm Service Date, if different from initiated Date: [] Patient: William Cortes 81 y/o M admitted on 01/05/22 for Confusion. Chief Complaint: [] Interval history: Mr. Cortes is a 81 year old male with a history of hypertension, interstitial lung disease, COPD, CVA, degenerative disc disease, probable cognitive impairment, possible alcohol use disorder who was brought to the emergency department for a change in mental status. The patient reportedly fell out of his chair this morning. He reportedly had 2 shots of whiskey in the morning which is unusual for him. In the emergency department, the patient was initially hypotensive and given IV fluid. Temperature was 95.5 Fahrenheit, the patient had a mild leukocytosis of 11,500. The patient's creatinine was 1.4 c onsistent with an acute kidney injury. EKG showed sinus bradycardia with a heart rate of 58, no acute ischemic changes. Troponin was normal. Alcohol level was normal. Radiology reported the chest x-ray showing suspected congestive heart failure superimposed on interstitial fibrosis and COPD. CT head did not show any acute changes, there was a remote left temporal occipital junction infarct. Th e patient had an MRI brain without contrast on 12/30/2021 that showed an old infarct in the left temporal occipital boundary. The patient had a thoracic and lumbar spine without contrast that showed degenerative disc disease but no acute fractures. The patient's blood pressure did improve somewhat after IV fluid. Hospital medicine was consulted for hospital admission. The patient is unable to provide a good history, and is unclear what his baseline cognitive status is however review of the available clinic visit documentation suggest that he probably has significant cognitive impairment at baseline. 01/06 Patient's mental status has improved, he is probably near his baseline which is probably moderate to severe cognitive impairment. Renal function has recovered with resolution of the acute kidney injury. Leukocytosis resolved. Florencia COVID and influenza negative. Urine drug screen was negative. VBG, lactic acid, ammonia level, BNP all unremarkable. Physical exam Head: Atraumatic, normal inspection. Eyes: normal appearance, no scleral icterus. Neck: full ROM Respiratory: no respiratory distress. Cardiovascular: Sternotomy scar, normal rate and rhythm, S1, S2. GI/Abdominal: soft, nontender, no guarding. Extremities: full range of motion, nontender. Neurological: CN II-XII intact, intact motor, intact sensation. Psychiatric: Improved cognition Skin: warm, normal color Constitutional Vitals: Vital Signs Temp Pulse Resp BP Pulse Ox O2 Del Method 97.9 F 73 16 99/62 95 01/06/22 11:54 01/06/22 11:54 01/06/22 11:54 01/06/22 11:54 01/06/22 11:54 01/06/22 11:54 Period Temp Pulse Resp BP Sys/Quinteros Pulse Ox O2 Del Method O2 Flow Rate Last 24 Hr 97.9 F-98.4 F 56-88 10-34 78-127/41-74 94-97 Room Air-Room Air Intake and Output 01/06/22 01/06/22 01/06/22 03:59 11:59 19:59 Intake Total 220 Output Total 775 1000 Balance -775 -780 Weight 71.94 kg Intake & Output: Intake & Output 01/06/22 01/06/22 01/06/22 03:59 11:59 19:59 Intake Total 220 Output Total 775 1000 Balance -775 -780 Weight 71.94 kg Intake: Oral 220 Output: Void Amount 775 1000 Other: Meal Breakfast Percent of Meal Consumed 100% Feeding Ability Assist with Tray Set Up Urine Appearance Clear Clear Urine Color Yellow Dark Yellow OBJ DATA Labs CBC & Chem 7: 01/06/22 05:59 01/06/22 05:59 Labs: Abnormal Lab Results 01/06/22 01/06/22 01/05/22 05:59 05:59 17:45 WBC RBC 4.03 L Hgb 13.0 L Hct 38.1 L POC Hct Neut % (Auto) Lymph % (Auto) Lymph # (Auto) Immature Gran # Absolute Neutrophils ABG Methemoglobin 0.1 L VBG pO2 48.5 H VBG O2 Saturation 81.1 H Carboxyhemoglobin 5.2 H Anion Gap 7.0 L POC Creatinine POC Glucose Total Protein 5.8 L 01/05/22 01/05/22 01/05/22 12:59 12:35 12:24 WBC 11.5 H RBC Hgb Hct POC Hct 40.0 L Neut % (Auto) 82.3 H Lymph % (Auto) 11.4 L Lymph # (Auto) 1.31 L Immature Gran # 0.06 H Absolute Neutrophils 9.49 H ABG Methemoglobin VBG pO2 VBG O2 Saturation Carboxyhemoglobin Anion Gap POC Creatinine 1.4 H 1.4 H POC Glucose 156 H 172 H Total Protein Meds: Medications Acetaminophen (Acetaminophen 325 Mg Tablet) 650 mg PO Q6HP PRN; Protocol PRN Reason: Per Pain Protocol/Fever > 101 Last Admin: 01/06/22 07:24 Dose: 650 mg Albuterol Sulfate (Albuterol Sulfate 2.5 Mg/3 Ml Nebulizer) 2.5 mg NEB Q2HP PRN PRN Reason: Shortness Of Breath Albuterol/Ipratropium (Ipratropium/Albuterol 3 Ml Ampul.Neb) 3 ml NEB Q6HRT PRN PRN Reason: dyspnea Atorvastatin Calcium (Atorvastatin 20 Mg Tablet) 20 mg PO QDAY [facility] Last Admin: 01/06/22 10:04 Dose: 20 mg Clopidogrel Bisulfate (Clopidogrel 75 Mg Tablet) 75 mg PO QDAY [facility] Last Admin: 01/06/22 10:04 Dose: 75 mg Docusate Sodium (Docusate Sodium 100 Mg Capsule) 100 mg PO BID [facility] Last Admin: 01/06/22 10:04 Dose: 100 mg Gabapentin (Gabapentin 300 Mg Capsule) 600 mg PO QHS [facility] Heparin Sodium (Porcine) (Heparin 5,000 Unit/Ml Vial) 5,000 unit SQ Q12 [facility] Last Admin: 01/06/22 10:04 Dose: 5,000 unit Ondansetron HCl (Ondansetron 4 Mg/2 Ml Vial) 4 mg IV Q6HP PRN PRN Reason: Nausea And Vomiting Senna (Sennosides 1 Tablet) 2 tab PO HS [facility] Last Admin: 01/05/22 22:42 Dose: 2 tab Sodium Chloride (0.9 % Sodium Chloride 10 Ml Syringe) 10 ml IV Q8 [facility] Last Admin: 01/06/22 13:51 Dose: 10 ml Tamsulosin HCl (Tamsulosin 0.4 Mg Capsule) 0.4 mg PO QDAY [facility] Last Admin: 01/06/22 10:04 Dose: 0.4 mg ABG Interpretation ABG results: 01/05/22 17:45 ABG Methemoglobin 0.1 L VBG pH 7.36 VBG pCO2 44.4 VBG pO2 48.5 H VBG HCO3 24.5 VBG Total CO2 25.8 VBG O2 Saturation 81.1 H VBG Base Excess -1 A/P Narrative A/P Narrative: Assessment: 81 year old male with a history of hypertension, interstitial lung disease, COPD, CVA, degenerative disc disease, probable cognitive impairment, possible alcohol use disorder who was brought to the emergency department for a change in mental status. #Probably resolved encephalopathy #Ground-level fall #Resolved acute kidney injury #Hypotension, likely chronic #Resolved leukocytosis leukocytosis #Interstitial lung disease #COPD, stable #History of left temporal/occipital stroke #Possible vulnerable adult #Probable moderate to severe cognitive impairment Plan -Obtain collateral information from contacts. -Monitor for alcohol withdrawal symptoms. -Avoid additional psychotropic medications. -Continue home atorvastatin, Plavix, gabapentin, Flomax. -DuoNebs as needed. -PT and OT consult. -DVT prophylaxis: Heparin SQ -Disposition: Probably home tomorrow. Neurology referral at discharge to evaluate the patient for dementia. Time Spent With Patient Time: Total time spent is greater than 50% in coordination of care (as documented) at patient's floor/unit and/or counseling patient: QUALITY VTE Deep Vein Thrombosis/Pulmonary Embolism Present on Admission: No
[2022-01-06] MEDS: SENNOSIDES 1 TABLET PO SCH (20:19)
[2022-01-06] MEDS ORDERED: GABAPENTIN 300 MG CAPSULE PO SCH (21:00)
[2022-01-07] MEDS: ACETAMINOPHEN 325 MG TABLET PO PRN ×2 (01:10→08:31)
[2022-01-07] MEDS: 0.9 % SODIUM CHLORIDE 10 ML SYRINGE IV SCH ×2 (05:32→13:14)
[2022-01-07 06:56] LABS: ALT/SGPT 15 U/L (<40); AST/SGOT 18 U/L (<40); Albumin 3.5 gm/dL (3.2-5.2); Albumin/Globulin Ratio 1.3 (1.0-2.3); Alkaline Phosphatase 75 U/L (39-117); Bilirubin,Direct < 0.2 mg/dL (0-0.3); Blood Urea Nitrogen 13 mg/dL (8-23); Calcium 9.6 mg/dL (8.6-10.4); Carbon Dioxide 26 mmol/L (22-30); Chloride 103 mmol/L (96-108); Globulin 2.6 gm/dL (2.2-3.7); Glomerular Filtration Rate 83; Glucose 93 mg/dL (70-105); Lactate Dehydrogenase 177 U/L (135-225); Phosphorous 3.1 mg/dL (2.5-4.5); Triglycerides 98 mg/dL (<150); Uric Acid 5.6 mg/dL (2.5-8.0)
[2022-01-07] MEDS: ATORVASTATIN 20 MG TABLET PO SCH (08:32)
[2022-01-07] MEDS: CLOPIDOGREL 75 MG TABLET PO SCH (08:32)
[2022-01-07] MEDS: TAMSULOSIN 0.4 MG CAPSULE PO SCH (08:32)
[2022-01-07] MEDS: DOCUSATE SODIUM 100 MG CAPSULE PO SCH (08:33)
[2022-01-07] MEDS: HEPARIN 5,000 UNIT/ML VIAL SQ SCH (08:33)
--- NOTE | 2022-01-07 13:08 | Internal Med Progress Note ---
SUBJECTIVE Subjective Patient information: Note initiated : 01/07/22 at 1:04 pm Service Date, if different from initiated Date: [] Patient: William Cortes 81 y/o M admitted on 01/05/22 for Confusion. Chief Complaint: [] Interval history: Mr. Cortes is a 81 year old male with a history of hypertension, interstitial lung disease, COPD, CVA, degenerative disc disease, probable cognitive impairment, possible alcohol use disorder who was brought to the emergency department for a change in mental status. The patient reportedly fell out of his chair this morning. He reportedly had 2 shots of whiskey in the morning which is unusual for him. In the emergency department, the patient was initially hypotensive and given IV fluid. Temperature was 95.5 Fahrenheit, the patient had a mild leukocytosis of 11,500. The patient's creatinine was 1.4 c onsistent with an acute kidney injury. EKG showed sinus bradycardia with a heart rate of 58, no acute ischemic changes. Troponin was normal. Alcohol level was normal. Radiology reported the chest x-ray showing suspected congestive heart failure superimposed on interstitial fibrosis and COPD. CT head did not show any acute changes, there was a remote left temporal occipital junction infarct. Th e patient had an MRI brain without contrast on 12/30/2021 that showed an old infarct in the left temporal occipital boundary. The patient had a thoracic and lumbar spine without contrast that showed degenerative disc disease but no acute fractures. The patient's blood pressure did improve somewhat after IV fluid. Hospital medicine was consulted for hospital admission. The patient is unable to provide a good history, and is unclear what his baseline cognitive status is however review of the available clinic visit documentation suggest that he probably has significant cognitive impairment at baseline. 01/06 Patient's mental status has improved, he is probably near his baseline which is probably moderate to severe cognitive impairment. Renal function has recovered with resolution of the acute kidney injury. Leukocytosis resolved. Florencia COVID and influenza negative. Urine drug screen was negative. VBG, lactic acid, ammonia level, BNP all unremarkable. Hemoglobin 13, down from 15.1 on admission. 01/07 Vital stable overnight, no significant events. Hemoglobin stable at 12.9. Discussed the patient with his neighbor Kvng and his yesterday, they feel that the patient is back to his baseline. PT recommended low intensity rehab, the patient is agreeable to a custodial facility for rehab. Awaiting placement. Physical exam Head: Atraumatic, normal inspection. Eyes: normal appearance, no scleral icterus. Neck: full ROM Respiratory: no respiratory distress. Cardiovascular: Sternotomy scar, normal rate and rhythm, S1, S2. GI/Abdominal: soft, nontender, no guarding. Extremities: full range of motion, nontender. Neurological: CN II-XII intact, intact motor, intact sensation. Psychiatric: Improved cognition Skin: warm, normal color Constitutional Vitals: Vital Signs Temp Pulse Resp BP Pulse Ox O2 Del Method 98.9 F 74 14 97/55 95 01/07/22 07:39 01/07/22 07:39 01/07/22 07:39 01/07/22 07:39 01/07/22 07:39 01/07/22 07:39 Period Temp Pulse Resp BP Sys/Quinteros Pulse Ox O2 Del Method O2 Flow Rate Last 24 Hr 97.5 F-98.9 F 58-77 14-18 97-130/55-69 93-96 Room Air-Room Air Intake and Output 01/07/22 01/07/22 01/07/22 03:59 11:59 19:59 Intake Total 980 Output Total 575 600 Balance -575 380 Intake & Output: Intake & Output 01/07/22 01/07/22 01/07/22 03:59 11:59 19:59 Intake Total 980 Output Total 575 600 Balance -575 380 Intake: Oral 980 Output: Void Amount 575 600 Other: Meal Breakfast Percent of Meal Consumed 100% Feeding Ability Assist with Tray Set Up Urine Appearance Clear Clear Urine Color Yellow Bright Yellow Urine Odor Normal # Voids 1 OBJ DATA Labs CBC & Chem 7: 01/07/22 05:27 01/07/22 05:27 Labs: Abnormal Lab Results 01/07/22 01/07/22 01/06/22 05:27 05:27 05:59 WBC RBC Hgb 12.9 L Hct POC Hct Neut % (Auto) Lymph % (Auto) Lymph # (Auto) Immature Gran # Absolute Neutrophils ABG Methemoglobin VBG pO2 VBG O2 Saturation Carboxyhemoglobin Anion Gap 7.0 L POC Creatinine POC Glucose GGT 7 L Total Protein 5.8 L 01/06/22 01/05/22 01/05/22 05:59 17:45 12:59 WBC RBC 4.03 L Hgb 13.0 L Hct 38.1 L POC Hct 40.0 L Neut % (Auto) Lymph % (Auto) Lymph # (Auto) Immature Gran # Absolute Neutrophils ABG Methemoglobin 0.1 L VBG pO2 48.5 H VBG O2 Saturation 81.1 H Carboxyhemoglobin 5.2 H Anion Gap POC Creatinine 1.4 H POC Glucose 156 H GGT Total Protein 01/05/22 01/05/22 12:35 12:24 WBC 11.5 H RBC Hgb Hct POC Hct Neut % (Auto) 82.3 H Lymph % (Auto) 11.4 L Lymph # (Auto) 1.31 L Immature Gran # 0.06 H Absolute Neutrophils 9.49 H ABG Methemoglobin VBG pO2 VBG O2 Saturation Carboxyhemoglobin Anion Gap POC Creatinine 1.4 H POC Glucose 172 H GGT Total Protein Meds: Medications Acetaminophen (Acetaminophen 325 Mg Tablet) 650 mg PO Q6HP PRN; Protocol PRN Reason: Per Pain Protocol/Fever > 101 Last Admin: 01/07/22 08:31 Dose: 650 mg Albuterol Sulfate (Albuterol Sulfate 2.5 Mg/3 Ml Nebulizer) 2.5 mg NEB Q2HP PRN PRN Reason: Shortness Of Breath Albuterol/Ipratropium (Ipratropium/Albuterol 3 Ml Ampul.Neb) 3 ml NEB Q6HRT PRN PRN Reason: dyspnea Atorvastatin Calcium (Atorvastatin 20 Mg Tablet) 20 mg PO QDAY [facility] Last Admin: 01/07/22 08:32 Dose: 20 mg Clopidogrel Bisulfate (Clopidogrel 75 Mg Tablet) 75 mg PO QDAY [facility] Last Admin: 01/07/22 08:32 Dose: 75 mg Docusate Sodium (Docusate Sodium 100 Mg Capsule) 100 mg PO BID [facility] Last Admin: 01/07/22 08:33 Dose: 100 mg Gabapentin (Gabapentin 300 Mg Capsule) 600 mg PO QHS [facility] Last Admin: 01/06/22 20:19 Dose: 600 mg Heparin Sodium (Porcine) (Heparin 5,000 Unit/Ml Vial) 5,000 unit SQ Q12 [facility] Last Admin: 01/07/22 08:33 Dose: 5,000 unit Ondansetron HCl (Ondansetron 4 Mg/2 Ml Vial) 4 mg IV Q6HP PRN PRN Reason: Nausea And Vomiting Senna (Sennosides 1 Tablet) 2 tab PO HS [facility] Last Admin: 01/06/22 20:19 Dose: 2 tab Sodium Chloride (0.9 % Sodium Chloride 10 Ml Syringe) 10 ml IV Q8 [facility] Last Admin: 01/07/22 05:32 Dose: 10 ml Tamsulosin HCl (Tamsulosin 0.4 Mg Capsule) 0.4 mg PO QDAY [facility] Last Admin: 01/07/22 08:32 Dose: 0.4 mg ABG Interpretation ABG results: 01/05/22 17:45 ABG Methemoglobin 0.1 L VBG pH 7.36 VBG pCO2 44.4 VBG pO2 48.5 H VBG HCO3 24.5 VBG Total CO2 25.8 VBG O2 Saturation 81.1 H VBG Base Excess -1 A/P Narrative A/P Narrative: Assessment: 81 year old male with a history of hypertension, interstitial lung disease, COPD, CVA, degenerative disc disease, probable cognitive impairment, possible alcohol use disorder who was brought to the emergency department for a change in mental status. The patient's mental status improved back to his baseline. Hospital stay was otherwise unremarkable. The patient is currently awaiting placement for low intensity rehab. #Probably resolved encephalopathy #Ground-level fall #Resolved acute kidney injury #Hypotension, likely chronic #Resolved leukocytosis leukocytosis #Interstitial lung disease #COPD, stable #History of left temporal/occipital stroke #Possible vulnerable adult #Probable moderate to severe cognitive impairment Plan -Awaiting placement. -Continue home atorvastatin, Plavix, gabapentin, Flomax. -DuoNebs as needed. -PT and OT. -DVT prophylaxis: Heparin SQ -Disposition: Low intensity rehab pending placement. Neurology referral at discharge to evaluate the patient for dementia. Time Spent With Patient Time: Total time spent is greater than 50% in coordination of care (as documented) at patient's floor/unit and/or counseling patient: QUALITY VTE Deep Vein Thrombosis/Pulmonary Embolism Present on Admission: No
--- NOTE | 2022-01-07 16:29 | Discharge Summary ---
Discharge Provider Provider IMPORTANT FOLLOW-UP INFORMATION FOR PCP: Patient information: Note initiated : 01/07/22 at 4:26 pm Service Date, if different from initiated Date: [] Patient: William Cortes 81 y/o M admitted on 01/05/22 for Confusion. Chief Complaint: [] Date of admission: 01/05/22 20:01 Discharge date: 01/07/22 Primary care physician: Dax Zheng MD Consults: 01/05/22 Consult to Physician [CONS] Stat Comment: Consulting Provider: Alex Thomas Reason For Exam: Physician to Consult COURSE Hospital Course Hospital course: Mr. Cortes is a 81 year old male with a history of hypertension, interstitial lung disease, COPD, CVA, degenerative disc disease, probable cognitive impairment, possible alcohol use disorder who was brought to the emergency department for a change in mental status. The patient reportedly fell out of his chair this morning. He reportedly had 2 shots of whiskey in the morning which is unusual for him. In the emergency department, the patient was initially hypotensive and given IV fluid. Temperature was 95.5 Fahrenheit, the patient had a mild leukocytosis of 11,500. The patient's creatinine was 1.4 consistent with an acute kidney injury. EKG showed sinus bradycardia with a heart rate of 58, no acute ischemic changes. Troponin was normal. Alcohol level was normal. Radiology reported the chest x-ray showing suspected co ngestive heart failure superimposed on interstitial fibrosis and COPD. CT head did not show any acute changes, there was a remote left temporal occipital junction infarct. The patient had an MRI brain without contrast on 12/30/2021 that showed an old infarct in the left temporal occipital boundary. The patient had a thoracic and lumbar spine without contrast that showed degenerative disc disease but no acute fractures. The patient's blood pressure did improve somewhat after IV fluid. Hospital medicine was consulted for hospital admission. The patient is unable to provide a good history, and is unclear what his baseline cognitive status is however review of the available clinic visit documentation suggest that he probably has significant cognitive impairment at baseline. 01/06 Patient's mental status has improved, he is probably near his baseline which is probably moderate to severe cognitive impairment. Renal function has recovered with resolution of the acute kidney injury. Leukocytosis resolved. Florencia COVID and influenza negative. Urine drug screen was negative. VBG, lactic acid, ammonia level, BNP all unremarkable. Hemoglobin 13, down from 15.1 on admission. 01/07 Vital stable overnight, no significant events. Hemoglobin stable at 12.9. Discussed the patient with his neighbor Kvng and his yesterday, they feel that the patient is back to his baseline. PT recommended low intensity rehab however the patient refused. He will discharge home with his friend, Kvng. Referral to neurology at discharge for formal evaluation of cognitive impairment. I suspect the patient has at least moderate cognitive impairment and may be developing dementia. Follow up with PCP. No new medications at discharge . Physical exam Head: Atraumatic, normal inspection. Eyes: normal appearance, no scleral icterus. Neck: full ROM Respiratory: no respiratory distress. Cardiovascular: Sternotomy scar, normal rate and rhythm, S1, S2. GI/Abdominal: soft, nontender, no guarding. Extremities: full range of motion, nontender. Neurological: CN II-XII intact, intact motor, intact sensation. Psychiatric: Normal mood Skin: warm, normal color Discharge diagnosis: Acute kidney injury Secondary discharge diagnosis: Ground level fall Encephalopathy Probable cognitive impairment Time Spent with Patient Time attestation: Total time spent providing and/or coordinating discharge services: Time spent: Greater than 30 minutes EXAM Constitutional Vitals: Temp Pulse Resp BP Pulse Ox O2 Del Method 98.7 F 85 14 106/78 97 01/07/22 16:00 01/07/22 16:00 01/07/22 16:00 01/07/22 16:00 01/07/22 16:00 01/07/22 16:00 Discharge Data Data Completed and Pending Labs on day of discharge: Labs from last 24 hours 01/07/22 01/07/22 05:27 05:27 Hgb 12.9 L Sodium 137 Potassium 4.3 Chloride 103 Carbon Dioxide 26 Anion Gap 8.0 BUN 13 Creatinine 0.8 GFR Calculation 83 Glucose 93 Uric Acid 5.6 Calcium 9.6 Phosphorus 3.1 Magnesium 1.8 Total Bilirubin 1.0 Direct Bilirubin < 0.2 GGT 7 L AST 18 ALT 15 Alkaline Phosphatase 75 Lactate Dehydrogenase 177 Total Protein 6.1 Albumin 3.5 Globulin 2.6 Albumin/Globulin Ratio 1.3 Triglycerides 98 Preliminary micro results at discharge 01/05/22 12:49 Blood Culture - Preliminary Blood 01/05/22 12:45 Blood Culture - Preliminary Blood Discharge Plan Patient/Caregiver Discharge Instructions Activity: increase activity as tolerated Diet: Consistent Carbohydrate Prescriptions: Continued gabapentin 300 mg capsule 600 mg PO QHS atorvastatin 20 mg tablet 20 mg PO QDAY benazepril 20 mg tablet 20 mg PO QDAY clopidogrel 75 mg tablet 75 mg PO QDAY meloxicam 7.5 mg tablet 7.5 mg PO QDAY tamsulosin 0.4 mg capsule 0.4 mg PO QDAY Follow Up Plan Follow up with: Dax Zheng MD [Primary Care Provider] - Patient Disposition: Home, Self-Care Overall status at discharge: patient is progressing back to baseline Discharge Orders: Discharge Order (Routine); Ordered 01/07/22 Ordered By: Alex GONZALEZ VTE Deep Vein Thrombosis/Pulmonary Embolism Present on Admission: No
== END 2022-01-07 17:15 | disposition home or self-care (01) | DRG 682 ==
LOC: ED 11:59 → MEDSUR 20:01
PROVIDERS: ADMIT Internal Medicine; ATTEND Internal Medicine

== ENCOUNTER 2022-07-29 10:06 | Inpatient (IN) ==
[2022-07-29] MEDS ORDERED: ASPIRIN 81 MG TAB.CHEW CHEWED ONE (10:13)
[2022-07-29] MEDS ORDERED: IPRATROPIUM/ALBUTEROL 3 ML AMPUL.NEB NEB ONE ×3 (10:15→14:34)
[2022-07-29] MEDS ORDERED: 0.9 % SODIUM CHLORIDE 500 ML IV ONE ×2 (10:15→11:38)
--- NOTE | 2022-07-29 10:16 | Emergency Department Note ---
HPI General Chief complaint: Chest Pain Stated complaint: found down Time Seen by Provider: 07/29/22 10:13 Source: EMS Mode of arrival: wheelchair Limitations: altered mental status History of Present Illness HPI Narrative: Narrative: Patient is a an 81-year-old male with a complex history who presents to the emergency department due to shortness of breath. Patient was brought in by EMS. They state that upon their arrival patient was satting in the 70s. They gave patient a DuoNeb breathing treatments and he began to sat in the 90s. Patient did endorse chest pain as well. At this time he describes this as a tightness. The remainder of patient's vitals by EMS were unremarkable. Patient states that he does infrequently use oxygen at home. He does endorse shortness of breath at this time. He denies any other symptoms. Related Data Home Medications Medication Instructions Recorded Confirmed gabapentin 300 mg capsule 600 mg PO QHS 04/19/20 02/10/22 benazepril 20 mg tablet 20 mg PO QDAY 01/05/22 02/10/22 clopidogrel 75 mg tablet 75 mg PO QDAY 01/05/22 02/10/22 meloxicam 7.5 mg tablet 7.5 mg PO QDAY 01/05/22 02/10/22 tamsulosin 0.4 mg capsule 0.4 mg PO QDAY 01/05/22 02/10/22 Previous Rx's Medication Instructions Recorded montelukast 10 mg tablet 10 mg PO QHS #30 tabs 02/10/22 (Singulair) Allergies Allergy/AdvReac Type Severity Reaction Status Date / Time hydroxyzine [From Vistaril] Allergy Unknown Unknown Verified 07/29/22 10:07 meperidine [From Demerol] Allergy Unknown Unknown Verified 07/29/22 10:07 oxycodone [From Percodan] Allergy Unknown Unknown Verified 07/29/22 10:07 propoxyphene Allergy Unknown Unknown Verified 07/29/22 10:07 [From Darvocet-N] Review of Systems ROS ROS Narrative: Narrative: Constitutional: Denies fever or weakness Eyes: Denies vision change ENT ED: Denies throat pain or rhinorrhea Cardiovascular: Reports chest pain; Denies dyspnea on exertion, orthopnea or edema Respiratory: Reports shortness of breath and cough Gastrointestinal: Denies abdominal pain, nausea, vomiting, diarrhea, constipation, hematochezia or melena Genitourinary: Denies dysuria, frequency or hematuria Musculoskeletal: Denies back pain or myalgia Integumentary: Denies rash or lesions Neurological: Denies headache, weakness or confusion ON LICENSE OF [facility] Narrative Patient History Narrative: Narrative: Medical/Surgical/Family History All Active Problems (Updated 07/29/22 @ 14:51 by Baldo Shah MD) CAD (coronary artery disease) (Chronic) COPD (chronic obstructive pulmonary disease) (Chronic) Essential hypertension (Chronic) Pulmonary fibrosis (Chronic) Arthritis, lumbar spine (Chronic) Spinal stenosis, lumbar (Chronic) KRISTOPHER (obstructive sleep apnea) (Chronic) CPAP/BiPAP dependence (Chronic) Periodic limb movement disorder (Chronic) 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) BPH (benign prostatic hyperplasia) (Chronic) GERD (gastroesophageal reflux disease) (Chronic) History of adenomatous polyp of colon (Chronic) Hyperlipidemia (Chronic) Low back pain (Chronic) Bladder obstruction (Chronic) History of transient ischemic attack (Chronic) Erectile dysfunction (Chronic) Lumbar back pain (Chronic) Degenerative disc disease at L5-S1 level (Chronic) Leg weakness, bilateral (Chronic) Pulmonary congestion (Chronic) Pure hypercholesterolemia (Chronic) Unspecified dysplasia of prostate (Chronic) FCI (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 (Chronic) Fall from toilet seat (Chronic) Ribs, multiple fractures (Chronic) Pulmonary infiltrate (Chronic) Prostate irregularity (Chronic) Elevated PSA (Chronic) BPH without obstruction/lower urinary tract symptoms (Chronic) Bladder outlet obstruction (Chronic) Poor urinary stream (Chronic) Pressure ulcer, buttock (Chronic) Skin infection (Chronic) 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 (Chronic) Dependence on supplemental oxygen (Chronic) Other emphysema (Chronic) Other allergic rhinitis (Chronic) Status post coronary artery bypass graft (Chronic) History of percutaneous transluminal coronary angioplasty (Chronic) Memory impairment (Chronic) Other polyuria (Chronic) Diastasis recti (Chronic) Sinus tarsi syndrome (Chronic) Multiple fractures of ribs of left side (Chronic) Chronic low back pain (Chronic) Pain in toes of both feet (Chronic) Pain in joints of both feet (Chronic) Other specified dermatitis (Chronic) Hallux rigidus, acquired (Chronic) Onychomycosis (Chronic) Seborrheic dermatitis (Chronic) History of CVA (cerebrovascular accident) (Chronic) Contact dermatitis and eczema (Chronic) Dermatitis, perioral (Chronic) Anterior chest wall pain (Chronic) Inguinal hernia (Chronic) Difficulty urinating (Chronic) Groin pain (Chronic) Pain of both hip joints (Chronic) Overweight (Chronic) Rosacea (Chronic) Exostosis (Chronic) Interstitial lung disease (Chronic) Diverticulosis (Chronic) Left rib fracture (Chronic) Chills (Chronic) Dysuria (Chronic) Urinary hesitancy (Chronic) Stiffness in joint (Chronic) Joint pain (Chronic) Back pain (Chronic) BPH with obstruction/lower urinary tract symptoms (Chronic) Elevated PSA (Acute) Weakness (Chronic) Decubitus ulcer (Chronic) History of tobacco use (Acute) Non compliance w medication regimen (Chronic) Infected wound (Acute) Gluteal pain (Acute) Medicare annual wellness visit, subsequent (Acute) Diabetes mellitus with neuropathy (Chronic) Acute facial pain (Acute) Acute leg pain (Acute) Self-care deficit for medication management (Acute) Altered mental status (Acute) Fall (Acute) Right-sided chest pain (Acute) Hip pain, right (Acute) General weakness (Acute) Erythema (Acute) Open wound of left great toe (Acute) Osteomyelitis of great toe (Acute) Dry skin (Acute) Dementia (Chronic) Contusion of right temporofrontal scalp (Acute) Pulmonary fibrosis (Acute) Tachypnea (Acute) Tachycardia (Acute) Medical History Alcohol abuse Suggested by neighbors, patient denies 09/09 Anterior chest wall pain Arthritis, lumbar spine Atypical chest pain Back pain Bladder obstruction Progressive bladder outlet obstruction Bladder outlet obstruction BPH without obstruction/lower urinary tract symptoms CAD (coronary artery disease) s/p CABG Chills Chronic low back pain Colonic polyp Contact dermatitis and eczema COPD (chronic obstructive pulmonary disease) CPAP/BiPAP dependence Degenerative disc disease at L5-S1 level Dementia Dependence on supplemental oxygen Nocturnal Dermatitis, perioral Diabetes mellitus with neuropathy Diastasis recti Difficulty urinating Diverticulosis Dyspnea Dysuria Elevated PSA Erectile dysfunction Essential hypertension Exostosis Fall from toilet seat Gastric mucosal hypertrophy without mention of hemorrhage GERD (gastroesophageal reflux disease) Groin pain Hallux rigidus, acquired Heartburn History of adenomatous polyp of colon History of CVA (cerebrovascular accident) History of esophageal stricture History of tobacco use quit ~ 1989 History of transient ischemic attack Hyperlipidemia Inguinal hernia Insomnia disorder related to known organic factor Interstitial lung disease Joint pain Left rib fracture Leg weakness, bilateral FCI (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 Clopidogrel (Plavix) 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 FCI (current) use of opiate analgesic Low back pain Lumbar back pain Medicare annual wellness visit, subsequent Memory impairment Migraine headache Multiple fractures of ribs of left side Non compliance w medication regimen Onychomycosis KRISTOPHER (obstructive sleep apnea) Other allergic rhinitis Other emphysema Other polyuria Other specified dermatitis Overweight Pain in joints of both feet Pain in toes of both feet Pain of both hip joints Periodic limb movement disorder Poor urinary stream Pressure ulcer, buttock Prostate irregularity Pulmonary congestion Pulmonary fibrosis Pulmonary infiltrate Pure hypercholesterolemia Pyloritis Ribs, multiple fractures Rosacea Seborrheic dermatitis Self-care deficit for medication management Sinus tarsi syndrome Skin infection SOB (shortness of breath) Spinal stenosis, lumbar Stiffness in joint TIA (transient ischemic attack) Unable to care for self Unspecified dysplasia of prostate Urinary hesitancy Surgical History H/O colonoscopy July 2011-diverticulosis and hyperplastic polyp-repeat 3 years hx rapid former adenomatous polyps. History of appendectomy (~1957) History of bilateral inguinal hernia repair 12/28/2020 History of carpal tunnel release Left, 1987 History of cataract extraction with IOL implants 1988 History of herniorrhaphy Hiatral 1988, Hiatal hernia-1996 History of hiatal hernia (~2009) Revision History of percutaneous transluminal coronary angioplasty History of rotator cuff surgery 1987 left; 1988 right; History of surgery Cystourethroscopy, urethral calibration History of surgery Right femoral tunnel release, 1988 Hx of CABG (~1992) Three-vessel; patient reports occurred after a lower extremity study with a piece of the catheter breaking off requiring intervention to retrieve it. Family History Father , at 85 from prostate cancer Prostate cancer Brother Diabetes High cholesterol Sister Asthma Family/Other Brain cancer Social History Smoking Status: Former smoker Alcohol Intake Frequency: does not drink Substance Use: does not use Exam Narrative Narrative: Narrative: General Limitations: altered mental status General appearance: Present alert and in no apparent distress; Absent anxious, appears intoxicated or sleepy Head Head: Present atraumatic and normocephalic Eye Eye: Present EOMI; Absent scleral icterus or nystagmus ENT ENT: Present mucous membranes moist; Absent nasal congestion Neck Neck: Present full ROM and trachea midline Chest Chest: Present normal inspection and symmetric chest wall rise Respiratory Respiratory: Present normal lung sounds bilaterally and decreased breath sounds; Absent respiratory distress, rales/crackles, wheezes, stridor or accessory muscle use Cardiovascular Cardiovascular: Present normal rhythm, tachycardia and normal heart sounds Adbominal Abdominal: Present soft; Absent distention Extremities Extremities: Present normal inspection and full ROM; Absent tenderness, pedal edema or pretibial edema Back Back: Present normal inspection and full ROM; Absent tenderness Neurological Neurological: Present alert and oriented X3 Psychiatric Psychiatric: Present normal affect and normal mood Skin Skin: Present warm (WNL), dry and normal color Course Vital Signs Vital signs: Vital Signs Pulse Rate 119 H 07/29/22 10:07 Respiratory Rate 42 H 07/29/22 10:07 Blood Pressure 141/114 07/29/22 10:07 Pulse Oximetry (%) 96 07/29/22 10:07 Oxygen Delivery Method Room Air 07/29/22 10:07 Pulse Rate 99 H 07/29/22 12:47 Respiratory Rate 34 H 07/29/22 14:17 Blood Pressure 94/69 07/29/22 14:17 Pulse Oximetry (%) 100 07/29/22 11:37 Oxygen Delivery Method Nasal Cannula 07/29/22 13:01 Oxygen Flow Rate (L/min) 2 07/29/22 13:01 [facility] MDM Narrative Medical decision making narrative: Narrative: Patient is an 81-year-old male who presents to the emergency department due to shortness of breath. Differential diagnoses include COPD exacerbation, worsening pulmonary fibrosis, ACS, and pneumonia. X-ray is concerning for worsening pulmonary fibrosis and possible underlying pneumonia. Patient has received ceftriaxone and azithromycin for this reason. Patient's white blood cell count is 19. Labs do also demonstrate a mildly elevated lactate of 2.3 and an elevated PCO2 of 67. Patient is requiring 2 L of O2 via nasal cannula at this time. He continues to have tachycardia despite fluid resuscitation. Patient has received 2 DuoNebs in the emergency department and continues to be tachypneic and to have some increased work of breathing. I have spoken to Dr. Eugene who has agreed to see and evaluate patient for admission. Patient is being placed on BiPAP. Lab Data 07/29/22 10:20 Labs: Lab Results 07/29/22 07/29/22 07/29/22 Range/Units 10:20 10:20 10:20 WBC 19.1 H (4.5-11.0) K/mcL RBC 5.63 (4.63-6.08) M/mcL Hgb 18.6 H (13.7-17.5) g/dL Hct 51.8 H (40.1-51.0) % POC Hct (41-55) MCV 92.0 (80.0-100.0) fL MCH 33.0 (26.0-34.0) pg MCHC 35.9 (31.0-36.0) g/dL RDW 11.8 (11.5-14.5) % Plt Count 260 (140-440) K/mcL MPV 9.8 (8.8-12.5) fL Immature Gran % (Auto) 0.3 (0.0-0.5) % Neut % (Auto) 88.5 H (38.0-78.0) % Lymph % (Auto) 5.9 L (15.5-49.0) % Leslie % (Auto) 5.0 (1.0-12.0) % Eos % (Auto) 0.1 (0.0-7.0) % Baso % (Auto) 0.2 (0.0-2.0) % Lymph # (Auto) 1.12 L (1.50-4.80) K/mcL Leslie # (Auto) 0.96 H (0.10-0.90) K/mcL Eos # (Auto) 0.02 (0.00-0.70) K/mcL Baso # (Auto) 0.03 (0.00-0.30) K/mcL Immature Gran # 0.06 H (0.00-0.05) K/mcl Absolute Neutrophils 16.89 H (1.80-8.00) K/mcL PT 13.5 (11.9-14.5) sec INR 1.0 (0.9-1.1) APTT 29.2 (20.0-37.0) sec D-Dimer (0.27-0.50) ug/mL POC VBG pH (7.32-7.42) POC VBG pCO2 at Temp (41-51) POC VBG pO2 (25-40) POC VBG HCO3 (24-28) POC VBG Total CO2 (25-29) POC Venous O2 Sat (40-70) POC VBG Base Excess (-2-2) VBG Lactic Acid (0.5-2) POC Sodium (133-145) POC Potassium (3.3-5.1) POC Chloride (96-108) POC Total CO2 (22-30) POC Anion Gap (8.0-16.0) POC BUN (6-20) POC Creatinine (0.6-1.2) POC Glucose (70-105) POC WB Ioniz Calcium (1.16-1.32) Total Bilirubin 2.2 H (0.1-1.0) mg/dL Direct Bilirubin 0.3 H (<0.3) mg/dL AST 75 H (<40) U/L ALT 30 (<40) U/L Alkaline Phosphatase 91 (39-117) U/L NT-Pro-B Natriuret Pep 1208.0 H (<450.0) pg/mL Total Protein 7.9 (5.9-8.4) gm/dL Albumin 4.4 (3.2-5.2) gm/dL Globulin 3.5 (2.2-3.7) gm/dL Procalcitonin (<0.10) ng/mL POC Troponin I (0.00-0.08) 07/29/22 07/29/22 07/29/22 Range/Units 10:20 10:20 10:21 WBC (4.5-11.0) K/mcL RBC (4.63-6.08) M/mcL Hgb (13.7-17.5) g/dL Hct (40.1-51.0) % POC Hct 55.0 (41-55) MCV (80.0-100.0) fL MCH (26.0-34.0) pg MCHC (31.0-36.0) g/dL RDW (11.5-14.5) % Plt Count (140-440) K/mcL MPV (8.8-12.5) fL Immature Gran % (Auto) (0.0-0.5) % Neut % (Auto) (38.0-78.0) % Lymph % (Auto) (15.5-49.0) % Leslie % (Auto) (1.0-12.0) % Eos % (Auto) (0.0-7.0) % Baso % (Auto) (0.0-2.0) % Lymph # (Auto) (1.50-4.80) K/mcL Leslie # (Auto) (0.10-0.90) K/mcL Eos # (Auto) (0.00-0.70) K/mcL Baso # (Auto) (0.00-0.30) K/mcL Immature Gran # (0.00-0.05) K/mcl Absolute Neutrophils (1.80-8.00) K/mcL PT (11.9-14.5) sec INR (0.9-1.1) APTT (20.0-37.0) sec D-Dimer 0.98 H (0.27-0.50) ug/mL POC VBG pH (7.32-7.42) POC VBG pCO2 at Temp (41-51) POC VBG pO2 (25-40) POC VBG HCO3 (24-28) POC VBG Total CO2 (25-29) POC Venous O2 Sat (40-70) POC VBG Base Excess (-2-2) VBG Lactic Acid (0.5-2) POC Sodium 142 (133-145) POC Potassium 5.0 (3.3-5.1) POC Chloride 98 (96-108) POC Total CO2 35.0 H (22-30) POC Anion Gap 15.0 (8.0-16.0) POC BUN 30 H (6-20) POC Creatinine 0.7 (0.6-1.2) POC Glucose 172 H (70-105) POC WB Ioniz Calcium 1.21 (1.16-1.32) Total Bilirubin (0.1-1.0) mg/dL Direct Bilirubin (<0.3) mg/dL AST (<40) U/L ALT (<40) U/L Alkaline Phosphatase (39-117) U/L NT-Pro-B Natriuret Pep (<450.0) pg/mL Total Protein (5.9-8.4) gm/dL Albumin (3.2-5.2) gm/dL Globulin (2.2-3.7) gm/dL Procalcitonin 0.09 (<0.10) ng/mL POC Troponin I (0.00-0.08) 07/29/22 07/29/22 Range/Units 10:22 10:23 WBC (4.5-11.0) K/mcL RBC (4.63-6.08) M/mcL Hgb (13.7-17.5) g/dL Hct (40.1-51.0) % POC Hct (41-55) MCV (80.0-100.0) fL MCH (26.0-34.0) pg MCHC (31.0-36.0) g/dL RDW (11.5-14.5) % Plt Count (140-440) K/mcL MPV (8.8-12.5) fL Immature Gran % (Auto) (0.0-0.5) % Neut % (Auto) (38.0-78.0) % Lymph % (Auto) (15.5-49.0) % Leslie % (Auto) (1.0-12.0) % Eos % (Auto) (0.0-7.0) % Baso % (Auto) (0.0-2.0) % Lymph # (Auto) (1.50-4.80) K/mcL Leslie # (Auto) (0.10-0.90) K/mcL Eos # (Auto) (0.00-0.70) K/mcL Baso # (Auto) (0.00-0.30) K/mcL Immature Gran # (0.00-0.05) K/mcl Absolute Neutrophils (1.80-8.00) K/mcL PT (11.9-14.5) sec INR (0.9-1.1) APTT (20.0-37.0) sec D-Dimer (0.27-0.50) ug/mL POC VBG pH 7.36 (7.32-7.42) POC VBG pCO2 at Temp 67.0 H* (41-51) POC VBG pO2 20 L (25-40) POC VBG HCO3 37.7 H (24-28) POC VBG Total CO2 40.0 H (25-29) POC Venous O2 Sat 28.0 L (40-70) POC VBG Base Excess 12.0 H* (-2-2) VBG Lactic Acid 2.3 H (0.5-2) POC Sodium (133-145) POC Potassium (3.3-5.1) POC Chloride (96-108) POC Total CO2 (22-30) POC Anion Gap (8.0-16.0) POC BUN (6-20) POC Creatinine (0.6-1.2) POC Glucose (70-105) POC WB Ioniz Calcium (1.16-1.32) Total Bilirubin (0.1-1.0) mg/dL Direct Bilirubin (<0.3) mg/dL AST (<40) U/L ALT (<40) U/L Alkaline Phosphatase (39-117) U/L NT-Pro-B Natriuret Pep (<450.0) pg/mL Total Protein (5.9-8.4) gm/dL Albumin (3.2-5.2) gm/dL Globulin (2.2-3.7) gm/dL Procalcitonin (<0.10) ng/mL POC Troponin I < 0.02 (0.00-0.08) Discharge Plan Patient/Caregiver Discharge Instructions Pt seen by DATABASE ENGINEER/PA only: No Clinical Impression: Pulmonary fibrosis, Tachypnea, Tachycardia Patient Disposition: Xfer As Inpt ([facility]) Follow up with: Dax Zheng MD [Primary Care Provider] - Prescriptions: No Action gabapentin 300 mg capsule 600 mg PO QHS montelukast [Singulair] 10 mg tablet 10 mg PO QHS Qty: 30 0RF benazepril 20 mg tablet 20 mg PO QDAY clopidogrel 75 mg tablet 75 mg PO QDAY meloxicam 7.5 mg tablet 7.5 mg PO QDAY tamsulosin 0.4 mg capsule 0.4 mg PO QDAY
[2022-07-29 10:35] LABS: POC Calcium, Ionized 1.21 (1.16-1.32); POC Creatinine 0.7 (0.6-1.2)
[2022-07-29 11:08] LABS: Basophils # (Auto) 0.03 K/mcL (0.00-0.30); Basophils % (Auto) 0.2 % (0.0-2.0); Eosinophils # (Auto) 0.02 K/mcL (0.00-0.70); Eosinophils % (Auto) 0.1 % (0.0-7.0); Hematocrit 51.8 % (40.1-51.0); Hemoglobin 18.6 g/dL (13.7-17.5); Lymphocytes # (Auto) 1.12 K/mcL (1.50-4.80); Lymphocytes % (Auto) 5.9 % (15.5-49.0); Mean Corpuscular HGB Conc 35.9 g/dL (31.0-36.0); Mean Platelet Volume 9.8 fL (8.8-12.5); Monocytes # (Auto) 0.96 K/mcL (0.10-0.90); Neutrophils % (Auto) 88.5 % (38.0-78.0); Platelet Count 260 K/mcL (140-440); RBC 5.63 M/mcL (4.63-6.08); Red Cell Distribution Width 11.8 % (11.5-14.5); WBC 19.1 K/mcL (4.5-11.0)
[2022-07-29] MEDS ORDERED: cefTRIAXone 2 GM in DEXTROSE 5% IN WATER 50 ML IV ONE (11:18)
[2022-07-29] MEDS ORDERED: AZITHROMYCIN 500 MG in DEXTROSE 5% IN WATER 250 ML IV ONE (11:18)
[2022-07-29 11:24] LABS: ALT/SGPT 30 U/L (<40); AST/SGOT 75 U/L (<40); Albumin 4.4 gm/dL (3.2-5.2); Alkaline Phosphatase 91 U/L (39-117); Bilirubin,Direct 0.3 mg/dL (<0.3); Bilirubin,Total 2.2 mg/dL (0.1-1.0); Globulin 3.5 gm/dL (2.2-3.7)
--- NOTE | 2022-07-29 11:27 | XRay Report ---
INDICATION: Chest Pain TECHNIQUE: AP portable semiupright chest x-ray COMPARISON: Previous chest x-rays dated 01/16/2022, 01/05/2022, 06/29/2021 FINDINGS: Lungs:Diffuse infiltrates consistent with pulmonary fibrosis. There are increased infiltrates of both lung bases. This can represent superimposed pneumonia although progression of disease is considered more likely. Heart, vascular:No significant cardiomegaly. Pulmonary vascularity is normal. No pulmonary edema or pulmonary congestion Mediastinum, bogdan:No mediastinal widening. No hilar mass Pleura:No pleural fluid. No pleural-based mass or calcification Skeletal:Negative. IMPRESSION: 1. Diffuse abnormality consistent with pulmonary fibrosis 2. Increased parenchymal abnormality since 01/16/2022. Progression of fibrosis is favored although superimposed infection is possible Interpreted and Authenticated by: Christian Feliz 07/29/22
[2022-07-29 11:37] LABS: Partial Thromboplastin Time 29.2 sec (20.0-37.0); Prothrombin Time 13.5 sec (11.9-14.5)
[2022-07-29] MEDS ORDERED: predniSONE 20 MG TABLET PO ONE ×2 (13:41→14:34)
--- NOTE | 2022-07-29 13:54 | Cat Scan Report ---
INDICATION: Positive D dimer, tachypnea, tachycardia, SOB COMPARISON: Previous chest CT scan dated 11/09/2018. Previous chest x-rays dated 07/29/2022, 01/16/2022, 01/05/2022 TECHNIQUE: Axial images obtained through the chest. 90ml Isovue 370 injected intravenously, and scanning was performed during pulmonary arterial phase. Sagittally and coronally reformatted images were obtained. MIP reformatted images. FINDINGS: Lungs:Severe pulmonary fibrosis with interval progression since 11/09/2018. There is bronchiectasis. There is extensive honeycombing. There is reticular abnormality. 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 No parenchymal consolidation. No pulmonary parenchymal mass. Findings are most consistent with progression of pulmonary fibrosis without evidence for superimposed acute pneumonia Mediastinum, vascular:Main pulmonary artery, right pulmonary artery, left pulmonary artery are negative. No intraluminal filling defects. No lobar, segmental, or subsegmental emboli. Thoracic aorta is negative. No aneurysmal dilatation There is mild hilar adenopathy which is probably reactive Heart:No cardiomegaly. No pericardial effusion. No significant reflux of contrast material into the inferior vena cava or hepatic veins Severe coronary artery calcification. Previous coronary artery bypass procedure Pleura:No significant pleural effusion. No pleural mass or calcification Axilla, supraclavicular regions, chest wall:No pathologic axillary or supraclavicular adenopathy. Musculoskeletal:Mild superior endplate compression deformities of the T3, T5, T6 vertebral bodies. Appearance is unchanged Upper Abdomen:Negative IMPRESSION: 1. Severe pulmonary fibrosis with interval worsening since 11/09/2018. 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 Negative pulmonary CTA. No pulmonary embolism 3. Atherosclerosis. Coronary artery calcification and previous coronary artery bypass procedure The exam was performed using radiation dose optimization techniques including, but not limited to, automated exposure control, adjustment of the mA and/or kV according to patient size and use of iterative reconstruction technique. Interpreted and Authenticated by: Christian Feliz 07/29/22
[2022-07-29] MEDS ORDERED: FUROSEMIDE 40 MG/4 ML VIAL IV ONE (14:12)
--- NOTE | 2022-07-29 14:37 | Internal Med History&Physical ---
HPI History of Present Illness Patient information: Note initiated : 07/29/22 at 2:29 pm Service Date, if different from initiated Date: [] Patient: William Cortes 81 y/o M admitted on for found down. Chief Complaint: [] History of present illness: Mr. Cortes is a 81 year old male with pulmonary fibrosis, asthma/COPD overlap syndrome, oxygen dependent, chronic hypoxic respiratory failure, obstructive sleep apnea on CPAP, CAD status post CABG and PCI, stroke, dementia with associated hallucinations, diabetes mellitus 2 with neuropathy hypertension, hyperlipidemia, BPH GERD, recurrent decubitus ulcer presented due to worsening shortness of breath. Patient was brought in by EMS. Patient is a limited historian. EMS noted that patient was satting in the 70s, they gave him DuoNebs treatment and his sats began to improve to 90s. Patient reported due to shortness of breath he was having some chest tightness. Patient reports he uses supplemental oxygen at home intermittently. He reports no fever, no chills, no sputum production or cough. On presentation patient was tachypneic with respiratory rate 37, tachycardic with heart rate 108-117, hypoxic of 79% on 2 L. Labs showed leukocytosis of 19,000, hemoglobin 18, platelets 260. VBG showed pH 7.35, evidence of hypercapnia with PCO2 67, HCO3 37. Elevated lactic acid of 2.3. Normal electrolytes and renal function, glucose 172. Total bilirubin 2.2, AST 75, ALT 30, alk phos 91. proBNP 1208. Procalcitonin 0.09. Troponin less than 0.02. CTA chest showed no PE however severe pulmonary fibrosis with interval worsening. Review of system Constitutional: Denies fever or weakness Eyes: Denies vision change ENT ED: Denies throat pain or rhinorrhea Cardiovascular: Reports chest pain; Denies dyspnea on exertion, orthopnea or edema Respiratory: Reports shortness of breath and cough Gastrointestinal: Denies abdominal pain, nausea, vomiting, diarrhea, constipation, hematochezia or melena Genitourinary: Denies dysuria, frequency or hematuria Musculoskeletal: Denies back pain or myalgia Integumentary: Denies rash or lesions Neurological: Appears intermittently confused but denies headache, weakness or confusion Physical examination General General appearance: Present alert and in no apparent distress; Absent anxious, appears intoxicated or sleepy Head Head: Present atraumatic and normocephalic Eye Eye: Present EOMI; Absent scleral icterus or nystagmus ENT ENT: Present mucous membranes moist; Absent nasal congestion Neck Neck: Present full ROM and trachea midline Chest Chest: Present normal inspection and symmetric chest wall rise Respiratory Respiratory: Present reduced air entry bilaterally; Absent respiratory distress, rales/crackles, wheezes, stridor or accessory muscle use Cardiovascular Cardiovascular: Present normal rhythm, tachycardia and normal heart sounds Adbominal Abdominal: Present soft; Absent distention Extremities Extremities: Present normal inspection and full ROM; Absent tenderness, pedal edema or pretibial edema Back Back: Present normal inspection and full ROM; Absent tenderness Neurological Neurological: Present alert and oriented to self and place but not oriented to time and person. Moving all limbs. Psychiatric Psychiatric: Present normal affect and normal mood Skin Skin: Present warm (WNL), dry and normal color Assessment and plan Sepsis. Patient presented with tachypnea, tachycardia, leukocytosis of 19,000, lactic acidosis and source of infection Pulmonary fibrosis, acute exacerbation. CTA chest showed severe pulmonary fibrosis with interval worsening. Will manage with IV Solu-Medrol 20 mg 3 times daily, DuoNebs, budesonide, pulmonary toileting, supplemental oxygen. Patient is on IV ceftriaxone every 24 hours. COPD exacerbation. CTA chest without evidence of acute infiltrate. Will manage with IV ceftriaxone, steroids, nebulization therapy, chest physio Acute on chronic hypoxic hypercapnic respiratory failure. Patient appears confused. This could be secondary to hypercapnia. We will start patient on B iPAP Acute encephalopathy. Likely in the setting of hypercapnia and underlying dementia. Obstructive sleep apnea on CPAP CAD status post CABG and PCI, no acute EKG changes. Troponin negative. Co ntinue Plavix Hx stroke, no focal deficits. On Plavix Dementia with associated hallucinations, monitor Diabetes mellitus 2, not on any diabetic medication. Will obtain A1c Hypertension, continue home NORA inhibitor BPH, continue tamsulosin Physical deconditioning, PT OT eval DVT prophylaxis with SCDs Full code Critical care time 85 minutes PFSH PFSH All Active Problems (Updated 07/29/22 @ 14:51 by Baldo Shah MD) CAD (coronary artery disease) (Chronic) COPD (chronic obstructive pulmonary disease) (Chronic) Essential hypertension (Chronic) Pulmonary fibrosis (Chronic) Arthritis, lumbar spine (Chronic) Spinal stenosis, lumbar (Chronic) KRISTOPHER (obstructive sleep apnea) (Chronic) CPAP/BiPAP dependence (Chronic) Periodic limb movement disorder (Chronic) 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) BPH (benign prostatic hyperplasia) (Chronic) GERD (gastroesophageal reflux disease) (Chronic) History of adenomatous polyp of colon (Chronic) Hyperlipidemia (Chronic) Low back pain (Chronic) Bladder obstruction (Chronic) History of transient ischemic attack (Chronic) Erectile dysfunction (Chronic) Lumbar back pain (Chronic) Degenerative disc disease at L5-S1 level (Chronic) Leg weakness, bilateral (Chronic) Pulmonary congestion (Chronic) Pure hypercholesterolemia (Chronic) Unspecified dysplasia of prostate (Chronic) 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 (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 (Chronic) Fall from toilet seat (Chronic) Ribs, multiple fractures (Chronic) Pulmonary infiltrate (Chronic) Prostate irregularity (Chronic) Elevated PSA (Chronic) BPH without obstruction/lower urinary tract symptoms (Chronic) Bladder outlet obstruction (Chronic) Poor urinary stream (Chronic) Pressure ulcer, buttock (Chronic) Skin infection (Chronic) 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 (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) use of opiate analgesic (Chronic) FCI (current) use of 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 (Chronic) Dependence on supplemental oxygen (Chronic) Other emphysema (Chronic) Other allergic rhinitis (Chronic) Status post coronary artery bypass graft (Chronic) History of percutaneous transluminal coronary angioplasty (Chronic) Memory impairment (Chronic) Other polyuria (Chronic) Diastasis recti (Chronic) Sinus tarsi syndrome (Chronic) Multiple fractures of ribs of left side (Chronic) Chronic low back pain (Chronic) Pain in toes of both feet (Chronic) Pain in joints of both feet (Chronic) Other specified dermatitis (Chronic) Hallux rigidus, acquired (Chronic) Onychomycosis (Chronic) Seborrheic dermatitis (Chronic) History of CVA (cerebrovascular accident) (Chronic) Contact dermatitis and eczema (Chronic) Dermatitis, perioral (Chronic) Anterior chest wall pain (Chronic) Inguinal hernia (Chronic) Difficulty urinating (Chronic) Groin pain (Chronic) Pain of both hip joints (Chronic) Overweight (Chronic) Rosacea (Chronic) Exostosis (Chronic) Interstitial lung disease (Chronic) Diverticulosis (Chronic) Left rib fracture (Chronic) Chills (Chronic) Dysuria (Chronic) Urinary hesitancy (Chronic) Stiffness in joint (Chronic) Joint pain (Chronic) Back pain (Chronic) BPH with obstruction/lower urinary tract symptoms (Chronic) Elevated PSA (Acute) Weakness (Chronic) Decubitus ulcer (Chronic) History of tobacco use (Acute) Non compliance w medication regimen (Chronic) Infected wound (Acute) Gluteal pain (Acute) Medicare annual wellness visit, subsequent (Acute) Diabetes mellitus with neuropathy (Chronic) Acute facial pain (Acute) Acute leg pain (Acute) Self-care deficit for medication management (Acute) Altered mental status (Acute) Fall (Acute) Right-sided chest pain (Acute) Hip pain, right (Acute) General weakness (Acute) Erythema (Acute) Open wound of left great toe (Acute) Osteomyelitis of great toe (Acute) Dry skin (Acute) Dementia (Chronic) Contusion of right temporofrontal scalp (Acute) Pulmonary fibrosis (Acute) Tachypnea (Acute) Tachycardia (Acute) Medical History Alcohol abuse Suggested by neighbors, patient denies 09/09 Anterior chest wall pain Arthritis, lumbar spine Atypical chest pain Back pain Bladder obstruction Progressive bladder outlet obstruction Bladder outlet obstruction BPH without obstruction/lower urinary tract symptoms CAD (coronary artery disease) s/p CABG Chills Chronic low back pain Colonic polyp Contact dermatitis and eczema COPD (chronic obstructive pulmonary disease) CPAP/BiPAP dependence Degenerative disc disease at L5-S1 level Dementia Dependence on supplemental oxygen Nocturnal Dermatitis, perioral Diabetes mellitus with neuropathy Diastasis recti Difficulty urinating Diverticulosis Dyspnea Dysuria Elevated PSA Erectile dysfunction Essential hypertension Exostosis Fall from toilet seat Gastric mucosal hypertrophy without mention of hemorrhage GERD (gastroesophageal reflux disease) Groin pain Hallux rigidus, acquired Heartburn History of adenomatous polyp of colon History of CVA (cerebrovascular accident) History of esophageal stricture History of tobacco use quit ~ 1989 History of transient ischemic attack Hyperlipidemia Inguinal hernia Insomnia disorder related to known organic factor Interstitial lung disease Joint pain Left rib fracture Leg weakness, bilateral FCI (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 Clopidogrel (Plavix) 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 (current) use of 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 (current) use of opiate analgesic Low back pain Lumbar back pain Medicare annual wellness visit, subsequent Memory impairment Migraine headache Multiple fractures of ribs of left side Non compliance w medication regimen Onychomycosis KRISTOPHER (obstructive sleep apnea) Other allergic rhinitis Other emphysema Other polyuria Other specified dermatitis Overweight Pain in joints of both feet Pain in toes of both feet Pain of both hip joints Periodic limb movement disorder Poor urinary stream Pressure ulcer, buttock Prostate irregularity Pulmonary congestion Pulmonary fibrosis Pulmonary infiltrate Pure hypercholesterolemia Pyloritis Ribs, multiple fractures Rosacea Seborrheic dermatitis Self-care deficit for medication management Sinus tarsi syndrome Skin infection SOB (shortness of breath) Spinal stenosis, lumbar Stiffness in joint TIA (transient ischemic attack) Unable to care for self Unspecified dysplasia of prostate Urinary hesitancy Surgical History H/O colonoscopy July 2011-diverticulosis and hyperplastic polyp-repeat 3 years hx rapid former adenomatous polyps. History of appendectomy (~1957) History of bilateral inguinal hernia repair 12/28/2020 History of carpal tunnel release Left, 1987 History of cataract extraction with IOL implants 1988 History of herniorrhaphy Hiatral 1988, Hiatal hernia-1996 History of hiatal hernia (~2009) Revision History of percutaneous transluminal coronary angioplasty History of rotator cuff surgery 1987 left; 1988 right; History of surgery Cystourethroscopy, urethral calibration History of surgery Right femoral tunnel release, 1988 Hx of CABG (~1992) Three-vessel; patient reports occurred after a lower extremity study with a piece of the catheter breaking off requiring intervention to retrieve it. 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 smoking status: Former smoker smoking status start date: 02/19/58 smoking status stop date: 02/19/89 alcohol intake frequency: does not drink substance use type: does not use MEDS/ALLERGIES Home Medications and Allergies Home Medications Medication Instructions Recorded Confirmed Type gabapentin 300 mg capsule 600 mg PO QHS 04/19/20 02/10/22 History benazepril 20 mg tablet 20 mg PO QDAY 01/05/22 02/10/22 History clopidogrel 75 mg tablet 75 mg PO QDAY 01/05/22 02/10/22 History meloxicam 7.5 mg tablet 7.5 mg PO QDAY 01/05/22 02/10/22 History tamsulosin 0.4 mg capsule 0.4 mg PO QDAY 01/05/22 02/10/22 History montelukast 10 mg tablet 10 mg PO QHS #30 tabs 02/10/22 02/10/22 Rx (Singulair) Allergies Allergy/AdvReac Type Severity Reaction Status Date / Time hydroxyzine [From Vistaril] Allergy Unknown Unknown Verified 07/29/22 10:07 meperidine [From Demerol] Allergy Unknown Unknown Verified 07/29/22 10:07 oxycodone [From Percodan] Allergy Unknown Unknown Verified 07/29/22 10:07 propoxyphene Allergy Unknown Unknown Verified 07/29/22 10:07 [From Darvocet-N] EXAM Constitutional Vitals: Pulse Resp BP Pulse Ox O2 Del Method O2 Flow Rate 99 H 34 H 94/69 100 Nasal Cannula 2 07/29/22 12:47 07/29/22 14:17 07/29/22 14:17 07/29/22 11:37 07/29/22 13:01 07/29/22 13:01 DATA Data Completed and Pending Labs: Labs from last 24 hours 07/29/22 07/29/22 07/29/22 10:23 10:22 10:21 WBC RBC Hgb Hct POC Hct 55.0 MCV MCH MCHC RDW Plt Count MPV Immature Gran % (Auto) Neut % (Auto) Lymph % (Auto) [place] % (Auto) Eos % (Auto) Baso % (Auto) Lymph # (Auto) [place] # (Auto) Eos # (Auto) Baso # (Auto) Immature Gran # Absolute Neutrophils PT INR APTT D-Dimer POC VBG pH 7.36 POC VBG pCO2 at Temp 67.0 H* POC VBG pO2 20 L POC VBG HCO3 37.7 H POC VBG Total CO2 40.0 H POC Venous O2 Sat 28.0 L POC VBG Base Excess 12.0 H* VBG Lactic Acid 2.3 H POC Sodium 142 POC Potassium 5.0 POC Chloride 98 POC Total CO2 35.0 H POC Anion Gap 15.0 POC BUN 30 H POC Creatinine 0.7 POC Glucose 172 H POC WB Ioniz Calcium 1.21 Total Bilirubin Direct Bilirubin AST ALT Alkaline Phosphatase NT-Pro-B Natriuret Pep Total Protein Albumin Globulin Procalcitonin POC Troponin I < 0.02 07/29/22 07/29/22 07/29/22 10:20 10:20 10:20 WBC RBC Hgb Hct POC Hct MCV MCH MCHC RDW Plt Count MPV Immature Gran % (Auto) Neut % (Auto) Lymph % (Auto) [place] % (Auto) Eos % (Auto) Baso % (Auto) Lymph # (Auto) [place] # (Auto) Eos # (Auto) Baso # (Auto) Immature Gran # Absolute Neutrophils PT 13.5 INR 1.0 APTT 29.2 D-Dimer 0.98 H POC VBG pH POC VBG pCO2 at Temp POC VBG pO2 POC VBG HCO3 POC VBG Total CO2 POC Venous O2 Sat POC VBG Base Excess VBG Lactic Acid POC Sodium POC Potassium POC Chloride POC Total CO2 POC Anion Gap POC BUN POC Creatinine POC Glucose POC WB Ioniz Calcium Total Bilirubin Direct Bilirubin AST ALT Alkaline Phosphatase NT-Pro-B Natriuret Pep Total Protein Albumin Globulin Procalcitonin 0.09 POC Troponin I 07/29/22 07/29/22 10:20 10:20 WBC 19.1 H RBC 5.63 Hgb 18.6 H Hct 51.8 H POC Hct MCV 92.0 MCH 33.0 MCHC 35.9 RDW 11.8 Plt Count 260 MPV 9.8 Immature Gran % (Auto) 0.3 Neut % (Auto) 88.5 H Lymph % (Auto) 5.9 L [place] % (Auto) 5.0 Eos % (Auto) 0.1 Baso % (Auto) 0.2 Lymph # (Auto) 1.12 L [place] # (Auto) 0.96 H Eos # (Auto) 0.02 Baso # (Auto) 0.03 Immature Gran # 0.06 H Absolute Neutrophils 16.89 H PT INR APTT D-Dimer POC VBG pH POC VBG pCO2 at Temp POC VBG pO2 POC VBG HCO3 POC VBG Total CO2 POC Venous O2 Sat POC VBG Base Excess VBG Lactic Acid POC Sodium POC Potassium POC Chloride POC Total CO2 POC Anion Gap POC BUN POC Creatinine POC Glucose POC WB Ioniz Calcium Total Bilirubin 2.2 H Direct Bilirubin 0.3 H AST 75 H ALT 30 Alkaline Phosphatase 91 NT-Pro-B Natriuret Pep 1208.0 H Total Protein 7.9 Albumin 4.4 Globulin 3.5 Procalcitonin POC Troponin I A/P Time Spent With Patient Time: Total time spent is greater than 50% in coordination of care (as documented) at patient's floor/unit and/or counseling patient:
[2022-07-29 17:01] LABS: Hemoglobin A1C 5.5 % Hgb (4.0-6.0)
[2022-07-29] MEDS ORDERED: ACETAMINOPHEN 325 MG TABLET PO PRN (17:07)
[2022-07-29] MEDS ORDERED: DOCUSATE SODIUM 100 MG CAPSULE PO PRN (17:07)
[2022-07-29] MEDS ORDERED: SENNOSIDES 1 TABLET PO PRN (17:07)
[2022-07-29] MEDS ORDERED: ONDANSETRON 4 MG/2 ML VIAL IV PRN (17:07)
[2022-07-29] MEDS ORDERED: LACTULOSE 20 GM/30 ML ORAL.SOL PO PRN (17:07)
[2022-07-29] MEDS: IPRATROPIUM/ALBUTEROL 3 ML AMPUL.NEB NEB SCH ×2 (17:26→21:03)
[2022-07-29] MEDS: BUDESONIDE 0.5 MG/2 ML AMPUL.NEB NEB SCH ×2 (17:28→21:04)
[2022-07-29 19:25] LABS: ALT/SGPT 30 U/L (<40); AST/SGOT 70 U/L (<40); Albumin 3.9 gm/dL (3.2-5.2); Albumin/Globulin Ratio 1.3 (1.0-2.3); Alkaline Phosphatase 73 U/L (39-117); Bilirubin,Total 1.5 mg/dL (0.1-1.0); Blood Urea Nitrogen 20 mg/dL (8-23); Calcium 9.4 mg/dL (8.6-10.4); Carbon Dioxide 31 mmol/L (22-30); Chloride 99 mmol/L (96-108); Globulin 2.9 gm/dL (2.2-3.7); Glomerular Filtration Rate 87; Glucose 108 mg/dL (70-105)
[2022-07-29] MEDS ORDERED: methylPREDNISolone SOD SUCC 40 MG/ML VIAL IV ONE (19:26)
[2022-07-29] MEDS: methylPREDNISolone SOD SUCC 40 MG/ML VIAL IV SCH ×2 (19:46→21:10)
[2022-07-29] MEDS: LACTATED RINGERS 1,000 ML IV SCH (19:47)
[2022-07-29] MEDS: MONTELUKAST 10 MG TABLET PO SCH (21:11)
[2022-07-29] MEDS: GABAPENTIN 300 MG CAPSULE PO SCH (21:11)
[2022-07-29] MEDS: 0.9 % SODIUM CHLORIDE 10 ML SYRINGE IV SCH (21:12)
--- NOTE | 2022-07-29 22:03 | Internal Med Progress Note ---
SUBJECTIVE Subjective Patient information: Note initiated : 07/29/22 at 10:02 pm Service Date, if different from initiated Date: [] Patient: William Cortes 81 y/o M admitted on 07/29/22 for Respiratory Failure. Chief Complaint: [] Additional PMFSH (Level 3 Only): History of present illness: Mr. Cortes is a 81 year old male with pulmonary fibrosis, asthma/COPD overlap syndrome, oxygen dependent, chronic hypoxic respiratory failure, obstructive sleep apnea on CPAP, CAD status post CABG and PCI, stroke, dementia with associated hallucinations, diabetes mellitus 2 with neuropathy hypertension, hyperlipidemia, BPH GERD, recurrent decubitus ulcer presented due to worsening shortness of breath. Patient was brought in by EMS. Patient is a limited historian. EMS noted that patient was satting in the 70s, they gave him DuoNebs treatment and his sats began to improve to 90s. Patient reported due to shortness of breath he was having some chest tightness. Patient reports he uses supplemental oxygen at home intermittently. He reports no fever, no chills, no sputum production or cough. On presentation patient was tachypneic with respiratory rate 37, tachycardic with heart rate 108-117, hypoxic of 79% on 2 L. Labs showed leukocytosis of 19,000, hemoglobin 18, platelets 260. VBG showed pH 7.35, evidence of hypercapnia with PCO2 67, HCO3 37. Elevated lactic acid of 2.3. Normal electrolytes and renal function, glucose 172. Total bilirubin 2.2, AST 75, ALT 30, alk phos 91. proBNP 1208. Procalcitonin 0.09. Troponin less than 0.02. CTA chest showed no PE however severe pulmonary fibrosis with interval worsening. 07/30. Patient breathing improved. This morning on 2 L and being weaned off. Hypercapnia improving on VBG. Electrolytes stable. Patient is weak and will likely need SNF placement Review of system Constitutional: Denies fever or weakness Eyes: Denies vision change ENT ED: Denies throat pain or rhinorrhea Cardiovascular: Denies dyspnea on exertion, orthopnea or edema, reports no chest pain Respiratory: Denies shortness of breath and cough Gastrointestinal: Denies abdominal pain, nausea, vomiting, diarrhea, constipation, hematochezia or melena Genitourinary: Denies dysuria, frequency or hematuria Musculoskeletal: Denies back pain or myalgia Integumentary: Denies rash or lesions Neurological: Alert, no focal deficits Physical examination General General appearance: Present alert and in no apparent distress; Absent anxious, appears intoxicated or sleepy Head Head: Present atraumatic and normocephalic Eye Eye: Present EOMI; Absent scleral icterus or nystagmus ENT ENT: Present mucous membranes moist; Absent nasal congestion Neck Neck: Present full ROM and trachea midline Chest Chest: Present normal inspection and symmetric chest wall rise Respiratory Respiratory: Present reduced air entry bilaterally; Absent respiratory distress, rales/crackles, wheezes, stridor or accessory muscle use Cardiovascular Cardiovascular: Present normal rhythm, tachycardia and normal heart sounds Adbominal Abdominal: Present soft; Absent distention Extremities Extremities: Present normal inspection and full ROM; Absent tenderness, pedal edema or pretibial edema Back Back: Present normal inspection and full ROM; Absent tenderness Neurological Neurological: Present alert and oriented to self and place but not oriented to time and person. Moving all limbs. Psychiatric Psychiatric: Present normal affect and normal mood Skin Skin: Present warm (WNL), dry and normal color Assessment and plan Sepsis. Patient presented with tachypnea, tachycardia, leukocytosis of 19,000, lactic acidosis and source of infection Pulmonary fibrosis, acute exacerbation. CTA chest showed severe pulmonary fibrosis with interval worsening. Will manage with IV Solu-Medrol 20 mg 3 times daily, DuoNebs, budesonide, pulmonary toileting, supplemental oxygen. Patient is on IV ceftriaxone every 24 hours. COPD exacerbation. CTA chest without evidence of acute infiltrate. Will manage with IV ceftriaxone, steroids, nebulization therapy, chest physio Acute on chronic hypoxic hypercapnic respiratory failure. Received BiPAP in ED. Hypercapnia improving on follow-up VBG's. Acute encephalopathy. Likely in the setting of hypercapnia and underlying dementia. Resolving. Obstructive sleep apnea on CPAP CAD status post CABG and PCI, no acute EKG changes. Troponin negative. Continue Plavix Hx stroke, no focal deficits. On Plavix Dementia with associated hallucinations, monitor Diabetes mellitus 2, not on any diabetic medication. Will obtain A1c Hypertension, continue home NORA inhibitor BPH, continue tamsulosin Physical deconditioning, PT OT eval. Will likely need SNF placement Disposition. Likely SNF DVT prophylaxis with SCDs Full code Total time taken 40 minutes Constitutional Vitals: Vital Signs Temp Pulse Resp BP Pulse Ox O2 Del Method O2 Flow Rate 97.6 F 98 H 34 H 103/56 99 Room Air 2 07/29/22 19:07 07/29/22 21:00 07/29/22 21:00 07/29/22 21:00 07/29/22 21:00 07/29/22 21:00 07/29/22 13:01 Period Temp Pulse Resp BP Sys/Quinteros Pulse Ox O2 Del Method O2 Flow Rate Last 24 Hr 97.5 F-97.6 F 84-119 18-51 93-160/54-114 79-100 BiPAP-Room Air 2-2 Intake and Output 07/29/22 07/29/22 07/30/22 11:59 19:59 03:59 Intake Total 1000 300 Output Total 320 Balance 1000 -20 Weight 56.699 kg 54.794 kg Patient Weight 07/30/22 03:59 Weight 54.794 kg Intake & Output: Intake & Output 07/29/22 07/29/22 07/30/22 11:59 19:59 03:59 Intake Total 1000 300 Output Total 320 Balance 1000 -20 Weight 56.699 kg 54.794 kg Intake: IV 1000 300 Sodium Chloride 0.9% 500 ml @ 1000 Wide Open IV [facility] Rx#: [id number] Zithromax 500 mg In Dextrose 5% 250 in Water 250 ml @ 250 mls/hr IV ONCE ONE Rx#:[id number] Rocephin 2 gm In Dextrose 5% in 50 Water 50 ml @ 100 mls/hr IV ONCE ONE Rx#:[id number] Output: Void Amount 320 Other: Meal Dinner Percent of Meal Consumed 100% Feeding Ability Needs Supervision Urine Color Tea Colored Urine Odor Strong OBJ DATA Labs 07/30/22 06:19 07/30/22 06:19 Labs: Abnormal Lab Results 07/29/22 07/29/22 07/29/22 17:50 14:31 10:22 WBC Hgb Hct Neut % (Auto) Lymph % (Auto) Lymph # (Auto) [place] # (Auto) Immature Gran # Absolute Neutrophils D-Dimer POC VBG pCO2 at Temp 61.0 H* 67.0 H* POC VBG pO2 20 L 20 L POC VBG HCO3 33.4 H 37.7 H POC VBG Total CO2 35.0 H 40.0 H POC Venous O2 Sat 29.0 L 28.0 L POC VBG Base Excess 8.0 H* 12.0 H* VBG Lactic Acid 2.3 H Carbon Dioxide 31 H POC Total CO2 POC BUN Glucose 108 H POC Glucose Total Bilirubin 1.5 H Direct Bilirubin AST 70 H NT-Pro-B Natriuret Pep 07/29/22 07/29/22 07/29/22 10:21 10:20 10:20 WBC Hgb Hct Neut % (Auto) Lymph % (Auto) Lymph # (Auto) [place] # (Auto) Immature Gran # Absolute Neutrophils D-Dimer 0.98 H POC VBG pCO2 at Temp POC VBG pO2 POC VBG HCO3 POC VBG Total CO2 POC Venous O2 Sat POC VBG Base Excess VBG Lactic Acid Carbon Dioxide POC Total CO2 35.0 H POC BUN 30 H Glucose POC Glucose 172 H Total Bilirubin 2.2 H Direct Bilirubin 0.3 H AST 75 H NT-Pro-B Natriuret Pep 1208.0 H 07/29/22 10:20 WBC 19.1 H Hgb 18.6 H Hct 51.8 H Neut % (Auto) 88.5 H Lymph % (Auto) 5.9 L Lymph # (Auto) 1.12 L [place] # (Auto) 0.96 H Immature Gran # 0.06 H Absolute Neutrophils 16.89 H D-Dimer POC VBG pCO2 at Temp POC VBG pO2 POC VBG HCO3 POC VBG Total CO2 POC Venous O2 Sat POC VBG Base Excess VBG Lactic Acid Carbon Dioxide POC Total CO2 POC BUN Glucose POC Glucose Total Bilirubin Direct Bilirubin AST NT-Pro-B Natriuret Pep Meds: Medications Acetaminophen (Acetaminophen 325 Mg Tablet) 650 mg PO Q6HP PRN; Protocol PRN Reason: Per Pain Protocol/Fever > 101 Albuterol/Ipratropium (Ipratropium/Albuterol 3 Ml Ampul.Neb) 3 ml NEB QID [facility] Last Admin: 07/29/22 21:03 Dose: 3 ml Budesonide (Budesonide 0.5 Mg/2 Ml Ampul.Neb) 0.5 mg NEB Q12 [facility] Last Admin: 07/29/22 21:04 Dose: 0.5 mg Clopidogrel Bisulfate (Clopidogrel 75 Mg Tablet) 75 mg PO QDAY [facility] Docusate Sodium (Docusate Sodium 100 Mg Capsule) 100 mg PO BIDP PRN PRN Reason: Constipation Gabapentin (Gabapentin 300 Mg Capsule) 300 mg PO QHS [facility] Last Admin: 07/29/22 21:11 Dose: 300 mg Lactated Ringer's (Lactated Ringers) 1,000 mls @ 75 mls/hr IV .[id number] [facility] Last Admin: 07/29/22 19:47 Dose: 75 mls/hr Ceftriaxone Sodium 2 gm/ (Dextrose) 50 mls @ 100 mls/hr IV DAILY [facility]; Protocol Lactulose (Lactulose 20 Gm/30 Ml Oral.Pat) 10 gm PO DAILYP PRN PRN Reason: Constipation Lisinopril (Lisinopril 20 Mg Tablet) 20 mg PO DAILY [facility] Meloxicam (Meloxicam 7.5 Mg Tablet) 7.5 mg PO QDAY [facility]; Protocol Methylprednisolone Sodium Succinate (Methylprednisolone Sod Succ 40 Mg/Ml Vial) 20 mg IV Q8 [facility] Last Admin: 07/29/22 21:10 Dose: 20 mg Montelukast Sodium (Montelukast 10 Mg Tablet) 10 mg PO QHS [facility] Last Admin: 07/29/22 21:11 Dose: 10 mg Ondansetron HCl (Ondansetron 4 Mg/2 Ml Vial) 4 mg IV Q4HP PRN; Protocol PRN Reason: Nausea And Vomiting Senna (Sennosides 1 Tablet) 2 tab PO HSP PRN PRN Reason: Constipation Sodium Chloride (0.9 % Sodium Chloride 10 Ml Syringe) 10 ml IV Q8 [facility] Last Admin: 07/29/22 21:12 Dose: 10 ml Tamsulosin HCl (Tamsulosin 0.4 Mg Capsule) 0.4 mg PO QDAY [facility] A/P Time Spent With Patient Time: Total time spent is greater than 50% in coordination of care (as documented) at patient's floor/unit and/or counseling patient:
[2022-07-30] MEDS: methylPREDNISolone SOD SUCC 40 MG/ML VIAL IV SCH ×3 (05:04→22:06)
[2022-07-30] MEDS: 0.9 % SODIUM CHLORIDE 10 ML SYRINGE IV SCH ×3 (05:04→22:06)
[2022-07-30 07:07] LABS: Basophils # (Auto) 0.01 K/mcL (0.00-0.30); Basophils % (Auto) 0.1 % (0.0-2.0); Eosinophils # (Auto) 0 K/mcL (0.00-0.70); Eosinophils % (Auto) 0 % (0.0-7.0); Hematocrit 43.7 % (40.1-51.0); Hemoglobin 14.8 g/dL (13.7-17.5); Lymphocytes # (Auto) 1.02 K/mcL (1.50-4.80); Lymphocytes % (Auto) 9.3 % (15.5-49.0); Mean Cell Volume 96.7 fL (80.0-100.0); Mean Corpuscular HGB Conc 33.9 g/dL (31.0-36.0); Mean Platelet Volume 9.6 fL (8.8-12.5); Monocytes # (Auto) 0.37 K/mcL (0.10-0.90); Monocytes % (Auto) 3.4 % (1.0-12.0); Neutrophils % (Auto) 86.8 % (38.0-78.0); Platelet Count 208 K/mcL (140-440); RBC 4.52 M/mcL (4.63-6.08); Red Cell Distribution Width 11.9 % (11.5-14.5)
[2022-07-30 07:44] LABS: ALT/SGPT 25 U/L (<40); AST/SGOT 46 U/L (<40); Albumin 3.4 gm/dL (3.2-5.2); Albumin/Globulin Ratio 1.3 (1.0-2.3); Alkaline Phosphatase 64 U/L (39-117); Bilirubin,Total 0.9 mg/dL (0.1-1.0); Blood Urea Nitrogen 21 mg/dL (8-23); Carbon Dioxide 30 mmol/L (22-30); Chloride 101 mmol/L (96-108); Globulin 2.6 gm/dL (2.2-3.7); Glomerular Filtration Rate 100; Glucose 124 mg/dL (70-105)
[2022-07-30] MEDS: LACTATED RINGERS 1,000 ML IV SCH ×3 (07:56→22:05)
[2022-07-30] MEDS ORDERED: LISINOPRIL 20 MG TABLET PO SCH (09:00)
[2022-07-30] MEDS ORDERED: cefTRIAXone 2 GM in DEXTROSE 5% IN WATER 50 ML IV SCH (09:00)
[2022-07-30] MEDS: BUDESONIDE 0.5 MG/2 ML AMPUL.NEB NEB SCH ×2 (09:20→21:47)
[2022-07-30] MEDS: IPRATROPIUM/ALBUTEROL 3 ML AMPUL.NEB NEB SCH ×4 (09:20→21:47)
[2022-07-30] MEDS: CLOPIDOGREL 75 MG TABLET PO SCH (09:55)
[2022-07-30] MEDS: TAMSULOSIN 0.4 MG CAPSULE PO SCH (09:55)
[2022-07-30] MEDS: MELOXICAM 7.5 MG TABLET PO SCH (09:55)
[2022-07-30] MEDS: cefTRIAXone 1 GM VIAL IV SCH (09:58)
--- NOTE | 2022-07-30 13:08 | Internal Med Progress Note ---
SUBJECTIVE Subjective Patient information: Note initiated : 07/30/22 at 1:01 pm Service Date, if different from initiated Date: [] Patient: William Cortes 81 y/o M admitted on 07/29/22 for Respiratory Failure. Chief Complaint: [] Interval history: History of present illness: Mr. Cortes is a 81 year old male with pulmonary fibrosis, asthma/COPD overlap syndrome, oxygen dependent, chronic hypoxic respiratory failure, obstructive sleep apnea on CPAP, CAD status post CABG and PCI, stroke, dementia with associated hallucinations, diabetes mellitus 2 with neuropathy hypertension, hyperlipidemia, BPH GERD, recurrent decubitus ulcer presented due to worsening shortness of breath. Patient was brought in by EMS. Patient is a limited historian. EMS noted that patient was satting in the 70s, they gave him DuoNebs treatment and his sats began to improve to 90s. Patient reported due to shortness of breath he was having some chest tightness. Patient reports he uses supplemental oxygen at home intermittently. He reports no fever, no chills, no sputum production or cough. On presentation patient was tachypneic with respiratory rate 37, tachycardic with heart rate 108-117, hypoxic of 79% on 2 L. Labs showed leukocytosis of 19,000, hemoglobin 18, platelets 260. VBG showed pH 7.35, evidence of hypercapnia with PCO2 67, HCO3 37. Elevated lactic acid of 2.3. Normal electrolytes and renal function, glucose 172. Total bilirubin 2.2, AST 75, ALT 30, alk phos 91. proBNP 1208. Procalcitonin 0.09. Troponin less than 0.02. CTA chest showed no PE however severe pulmonary fibrosis with interval worsening. 07/30. Patient breathing improved. This morning on 2 L and being weaned off. Hypercapnia improving on VBG. Electrolytes stable. Patient is weak and will likely need SNF placement 07/31 Review of Systems: denies headache/fever/chills/nausea/vomiting/chest or abdominal pain/cough/dyspnea/diarrhea. Otherwise see above. PHYSICAL EXAM General: Alert, Awake, No acute Distress Eyes/N/T: EOMI, no scleral icterus, PERRL, MM Head/Neck: neck supple, full ROM, normocephalic atraumatic CV: RRR, No murmurs, normal s1/s2 Pulm: diminished b/l, no wheezing/rhonchi/rales, no respiratory distress Abd: soft, nontender, +BS x4 Ext: no clubbing/cyanosis/edema, nontender Neuro: Alert, CN 2-12 grossly intact, no focal deficits, moves all extremities, , sensations intact b/l upper/lower Psychiatric: Skin: warm/dry, normal color Constitutional Vitals: Vital Signs Temp Pulse Resp BP Pulse Ox O2 Del Method O2 Flow Rate 97.3 F 107 H 27 H 114/71 98 Room Air 0 07/30/22 08:01 07/30/22 11:01 07/30/22 11:01 07/30/22 11:01 07/30/22 11:01 07/30/22 09:20 07/30/22 09:20 Period Temp Pulse Resp BP Sys/Quinteros Pulse Ox O2 Del Method O2 Flow Rate Last 24 Hr 97.0 F-97.6 F 71-116 15-51 93-131/55-107 92-100 BiPAP-Room Air 0-2 Intake and Output 07/30/22 07/30/22 07/30/22 03:59 11:59 19:59 Intake Total 1440 Output Total 0 Balance 1440 Weight 54.794 kg Intake & Output: Intake & Output 07/30/22 07/30/22 07/30/22 03:59 11:59 19:59 Intake Total 1440 Output Total 0 Balance 1440 Weight 54.794 kg Intake: IV 1000 Lactated Ringers 1,000 ml @ 75 1000 mls/hr IV .[id number] [facility] Rx#: [id number] Oral 440 Output: Void Amount 0 Other: Meal Dinner Breakfast Percent of Meal Consumed 100% 100% Feeding Ability Needs Supervision Assist with Tray Set Up # Bowel Movements 0 OBJ DATA Labs 07/30/22 06:19 07/30/22 06:19 Labs: Abnormal Lab Results 07/30/22 07/30/22 07/30/22 07:30 06:19 06:19 WBC RBC 4.52 L Hgb Hct Neut % (Auto) 86.8 H Lymph % (Auto) 9.3 L Lymph # (Auto) 1.02 L [place] # (Auto) Immature Gran # Absolute Neutrophils 9.53 H D-Dimer POC VBG pH 7.63 H* POC VBG pCO2 at Temp 28.1 L POC VBG pO2 67 H POC VBG HCO3 29.5 H POC VBG Total CO2 30.0 H POC Venous O2 Sat 96.0 H POC VBG Base Excess 8.0 H* VBG Lactic Acid Carbon Dioxide POC Total CO2 Anion Gap 6.0 L POC BUN Creatinine 0.5 L Glucose 124 H POC Glucose Total Bilirubin Direct Bilirubin AST 46 H NT-Pro-B Natriuret Pep 07/29/22 07/29/22 07/29/22 17:50 14:31 10:22 WBC RBC Hgb Hct Neut % (Auto) Lymph % (Auto) Lymph # (Auto) [place] # (Auto) Immature Gran # Absolute Neutrophils D-Dimer POC VBG pH POC VBG pCO2 at Temp 61.0 H* 67.0 H* POC VBG pO2 20 L 20 L POC VBG HCO3 33.4 H 37.7 H POC VBG Total CO2 35.0 H 40.0 H POC Venous O2 Sat 29.0 L 28.0 L POC VBG Base Excess 8.0 H* 12.0 H* VBG Lactic Acid 2.3 H Carbon Dioxide 31 H POC Total CO2 Anion Gap POC BUN Creatinine Glucose 108 H POC Glucose Total Bilirubin 1.5 H Direct Bilirubin AST 70 H NT-Pro-B Natriuret Pep 07/29/22 07/29/22 07/29/22 10:21 10:20 10:20 WBC RBC Hgb Hct Neut % (Auto) Lymph % (Auto) Lymph # (Auto) [place] # (Auto) Immature Gran # Absolute Neutrophils D-Dimer 0.98 H POC VBG pH POC VBG pCO2 at Temp POC VBG pO2 POC VBG HCO3 POC VBG Total CO2 POC Venous O2 Sat POC VBG Base Excess VBG Lactic Acid Carbon Dioxide POC Total CO2 35.0 H Anion Gap POC BUN 30 H Creatinine Glucose POC Glucose 172 H Total Bilirubin 2.2 H Direct Bilirubin 0.3 H AST 75 H NT-Pro-B Natriuret Pep 1208.0 H 07/29/22 10:20 WBC 19.1 H RBC Hgb 18.6 H Hct 51.8 H Neut % (Auto) 88.5 H Lymph % (Auto) 5.9 L Lymph # (Auto) 1.12 L [place] # (Auto) 0.96 H Immature Gran # 0.06 H Absolute Neutrophils 16.89 H D-Dimer POC VBG pH POC VBG pCO2 at Temp POC VBG pO2 POC VBG HCO3 POC VBG Total CO2 POC Venous O2 Sat POC VBG Base Excess VBG Lactic Acid Carbon Dioxide POC Total CO2 Anion Gap POC BUN Creatinine Glucose POC Glucose Total Bilirubin Direct Bilirubin AST NT-Pro-B Natriuret Pep Meds: Medications Acetaminophen (Acetaminophen 325 Mg Tablet) 650 mg PO Q6HP PRN; Protocol PRN Reason: Per Pain Protocol/Fever > 101 Albuterol/Ipratropium (Ipratropium/Albuterol 3 Ml Ampul.Neb) 3 ml NEB QID [facility] Last Admin: 07/30/22 09:20 Dose: 3 ml Budesonide (Budesonide 0.5 Mg/2 Ml Ampul.Neb) 0.5 mg NEB Q12 [facility] Last Admin: 07/30/22 09:20 Dose: 0.5 mg Ceftriaxone Sodium (Ceftriaxone 1 Gm Vial) 1 gm IV Q24H [facility] Last Admin: 07/30/22 09:58 Dose: 1 gm Clopidogrel Bisulfate (Clopidogrel 75 Mg Tablet) 75 mg PO QDAY [facility] Last Admin: 07/30/22 09:55 Dose: 75 mg Docusate Sodium (Docusate Sodium 100 Mg Capsule) 100 mg PO BIDP PRN PRN Reason: Constipation Gabapentin (Gabapentin 300 Mg Capsule) 300 mg PO QHS [facility] Last Admin: 07/29/22 21:11 Dose: 300 mg Lactated Ringer's (Lactated Ringers) 1,000 mls @ 75 mls/hr IV .[id number] [facility] Last Admin: 07/30/22 09:20 Dose: 75 mls/hr Lactulose (Lactulose 20 Gm/30 Ml Oral.Pat) 10 gm PO DAILYP PRN PRN Reason: Constipation Lisinopril (Lisinopril 20 Mg Tablet) 20 mg PO DAILY [facility] Last Admin: 07/30/22 09:55 Dose: 20 mg Meloxicam (Meloxicam 7.5 Mg Tablet) 7.5 mg PO QDAY [facility]; Protocol Last Admin: 07/30/22 09:55 Dose: 7.5 mg Methylprednisolone Sodium Succinate (Methylprednisolone Sod Succ 40 Mg/Ml Vial) 20 mg IV Q8 [facility] Last Admin: 07/30/22 05:04 Dose: 20 mg Montelukast Sodium (Montelukast 10 Mg Tablet) 10 mg PO QHS [facility] Last Admin: 06/10/23 21:11 Dose: 10 mg Ondansetron HCl (Ondansetron 4 Mg/2 Ml Vial) 4 mg IV Q4HP PRN; Protocol PRN Reason: Nausea And Vomiting Senna (Sennosides 1 Tablet) 2 tab PO HSP PRN PRN Reason: Constipation Sodium Chloride (0.9 % Sodium Chloride 10 Ml Syringe) 10 ml IV Q8 [facility] Last Admin: 07/30/22 05:04 Dose: 10 ml Tamsulosin HCl (Tamsulosin 0.4 Mg Capsule) 0.4 mg PO QDAY [facility] Last Admin: 07/30/22 09:55 Dose: 0.4 mg A/P Narrative A/P Narrative: Assessment and plan *Pulmonary fibrosis, acute exacerbation: -CTA chest showed severe pulmonary fibrosis with interval worsening -Will manage with IV Solu-Medrol 20 mg 3 times daily, DuoNebs, budesonide, pulmonary toileting, supplemental oxygen. -Patient is on IV ceftriaxone every 24 hours. *COPD exacerbation: CTA chest without evidence of acute infiltrate -Will manage with empiric IV ceftriaxone, steroids, nebulization therapy, chest physio *Acute on chronic hypoxic hypercapnic respiratory failure: -Required BiPAP in ED -Hypercapnia improving on follow-up VBG's. *Acute encephalopathy: Likely in the setting of hypercapnia and underlying dementia. Resolving. *Obstructive sleep apnea: on CPAP *h/o CAD with CABG/PCI: no acute EKG changes. Troponin negative. Continue Plavix *Hx stroke:, no focal deficits. On Plavix *Dementia with associated hallucinations, monitor *Diabetes mellitus 2: not on any diabetic medication. Will obtain A1c 5.5 *Hypertension: continue home NORA inhibitor *BPH, continue tamsulosin *Physical deconditioning: PT OT eval. Will likely need SNF placement *DVT prophylaxis: SCDs Time Spent With Patient Time: Total time spent is greater than 50% in coordination of care (as documented) at patient's floor/unit and/or counseling patient:
[2022-07-30] MEDS: MONTELUKAST 10 MG TABLET PO SCH (20:22)
[2022-07-30] MEDS: GABAPENTIN 300 MG CAPSULE PO SCH (20:22)
[2022-07-31] MEDS ORDERED: diphenhydrAMINE 25 MG CAPSULE PO PRN (01:10)
[2022-07-31] MEDS ORDERED: OLANZapine 5 MG TABLET PO PRN (01:11)
[2022-07-31] MEDS ORDERED: MELATONIN 3 MG TABLET PO ONE (01:19)
[2022-07-31] MEDS ORDERED: diphenhydrAMINE 25 MG CAPSULE ONE (01:20)
[2022-07-31] MEDS: MELATONIN 3 MG TABLET PO SCH ×2 (01:22→20:51)
[2022-07-31] MEDS ORDERED: OLANZapine 2.5 MG TABLET PO ONE (02:36)
[2022-07-31] MEDS: 0.9 % SODIUM CHLORIDE 10 ML SYRINGE IV SCH ×3 (04:37→20:52)
[2022-07-31] MEDS: methylPREDNISolone SOD SUCC 40 MG/ML VIAL IV SCH (05:28)
[2022-07-31] MEDS: LACTATED RINGERS 1,000 ML IV SCH (06:37)
[2022-07-31 07:29] LABS: ALT/SGPT 24 U/L (<40); AST/SGOT 36 U/L (<40); Albumin 3.3 gm/dL (3.2-5.2); Albumin/Globulin Ratio 1.3 (1.0-2.3); Alkaline Phosphatase 59 U/L (39-117); Bilirubin,Direct < 0.2 mg/dL (0-0.3); Bilirubin,Total 0.9 mg/dL (0.1-1.0); Blood Urea Nitrogen 19 mg/dL (8-23); Calcium 9.3 mg/dL (8.6-10.4); Carbon Dioxide 28 mmol/L (22-30); Chloride 102 mmol/L (96-108); Globulin 2.5 gm/dL (2.2-3.7); Glomerular Filtration Rate 93; Glucose 127 mg/dL (70-105); Lactate Dehydrogenase 244 U/L (135-225); Phosphorous 2.6 mg/dL (2.5-4.5); Triglycerides 79 mg/dL (<150); Uric Acid 3.6 mg/dL (2.5-8.0)
[2022-07-31] MEDS ORDERED: methylPREDNISolone SOD SUCC 40 MG/ML VIAL IV ONE (07:32)
--- NOTE | 2022-07-31 07:34 | Internal Med Progress Note ---
SUBJECTIVE Subjective Patient information: Note initiated : 07/31/22 at 7:30 am Service Date, if different from initiated Date: [] Patient: William Cortes 81 y/o M admitted on 07/29/22 for Respiratory Failure. Chief Complaint: [] Interval history: History of present illness: Mr. Cortes is a 81 year old male with pulmonary fibrosis, asthma/COPD overlap syndrome, oxygen dependent, chronic hypoxic respiratory failure, obstructive sleep apnea on CPAP, CAD status post CABG and PCI, stroke, dementia with associated hallucinations, diabetes mellitus 2 with neuropathy hypertension, hyperlipidemia, BPH GERD, recurrent decubitus ulcer presented due to worsening shortness of breath. Patient was brought in by EMS. Patient is a limited historian. EMS noted that patient was satting in the 70s, they gave him DuoNebs treatment and his sats began to improve to 90s. Patient reported due to shortness of breath he was having some chest tightness. Patient reports he uses supplemental oxygen at home intermittently. He reports no fever, no chills, no sputum production or cough. On presentation patient was tachypneic with respiratory rate 37, tachycardic with heart rate 108-117, hypoxic of 79% on 2 L. Labs showed leukocytosis of 19,000, hemoglobin 18, platelets 260. VBG showed pH 7.35, evidence of hypercapnia with PCO2 67, HCO3 37. Elevated lactic acid of 2.3. Normal electrolytes and renal function, glucose 172. Total bilirubin 2.2, AST 75, ALT 30, alk phos 91. proBNP 1208. Procalcitonin 0.09. Troponin less than 0.02. CTA chest showed no PE however severe pulmonary fibrosis with interval worsening. 07/30. Patient breathing improved. This morning on 2 L and being weaned off. Hypercapnia improving on VBG. Electrolytes stable. Patient is weak and will likely need SNF placement 07/31 Patient breathing continue to improve. Denies cough this morning, denies shortness of breath at rest. Blood pressure soft, hold NORA inhibitor. Currently on room air. Nurse noted rhythm on telemetry overnight with rate fluctuating bradycardic and tachycardic, patient was asymptomatic. Referral to follow-up with cardiology to evaluate for sinus node dysfunction/sick sinus syndrome. Review of Systems: denies headache/fever/chills/nausea/vomiting/chest or abdominal pain/diarrhea. Otherwise see above. PHYSICAL EXAM General: Alert, Awake, No acute Distress Eyes/N/T: EOMI, no scleral icterus, Head/Neck: neck supple, full ROM, CV: RRR, No murmurs, Pulm: diminished b/l, no wheezing/rhonchi/rales, no respiratory distress Abd: soft, nontender, +BS x4 Ext: no clubbing/cyanosis/edema, nontender Neuro: Alert, no focal deficits, moves all extremities, , sensations intact b/l upper/lower Psychiatric: Skin: warm/dry, normal color Constitutional Vitals: Vital Signs Temp Pulse Resp BP Pulse Ox O2 Del Method O2 Flow Rate 97.0 F 91 H 18 107/48 94 Room Air 0 07/30/22 19:00 07/31/22 03:48 07/31/22 03:48 07/31/22 03:48 07/31/22 03:48 07/31/22 03:48 07/30/22 09:20 Period Temp Pulse Resp BP Sys/Quinteros Pulse Ox O2 Del Method O2 Flow Rate Last 24 Hr 97.0 F-98.0 F 63-107 16-31 92-124/48-92 94-100 Room Air-Room Air 0 Intake and Output 07/30/22 07/31/22 07/31/22 19:59 03:59 11:59 Intake Total 480 1306 Output Total 1575 550 Balance 480 -269 -550 Weight 57.243 kg Intake & Output: Intake & Output 07/30/22 07/31/22 07/31/22 19:59 03:59 11:59 Intake Total 480 1306 Output Total 1575 550 Balance 480 -269 -550 Weight 57.243 kg Intake: IV 956 Lactated Ringers 1,000 ml @ 75 956 mls/hr IV .[id number] RAYMOND Rx#: [id number] Oral 480 350 Output: Void Amount 1575 550 Other: Urine Appearance Clear Urine Color Dark Yellow Urine Odor Strong Stool Size Large Stool Consistency Formed # Voids 1 # Bowel Movements 1 OBJ DATA Labs 07/30/22 06:19 07/31/22 05:54 Labs: Abnormal Lab Results 07/31/22 07/30/22 07/30/22 05:54 07:30 06:19 WBC RBC Hgb Hct Neut % (Auto) Lymph % (Auto) Lymph # (Auto) Dawes # (Auto) Immature Gran # Absolute Neutrophils D-Dimer POC VBG pH 7.63 H* POC VBG pCO2 at Temp 28.1 L POC VBG pO2 67 H POC VBG HCO3 29.5 H POC VBG Total CO2 30.0 H POC Venous O2 Sat 96.0 H POC VBG Base Excess 8.0 H* VBG Lactic Acid Carbon Dioxide POC Total CO2 Anion Gap 6.0 L POC BUN Creatinine 0.6 L 0.5 L Glucose 127 H 124 H POC Glucose Total Bilirubin Direct Bilirubin AST 46 H Lactate Dehydrogenase 244 H NT-Pro-B Natriuret Pep Total Protein 5.8 L 07/30/22 07/29/22 07/29/22 06:19 17:50 14:31 WBC RBC 4.52 L Hgb Hct Neut % (Auto) 86.8 H Lymph % (Auto) 9.3 L Lymph # (Auto) 1.02 L Dawes # (Auto) Immature Gran # Absolute Neutrophils 9.53 H D-Dimer POC VBG pH POC VBG pCO2 at Temp 61.0 H* POC VBG pO2 20 L POC VBG HCO3 33.4 H POC VBG Total CO2 35.0 H POC Venous O2 Sat 29.0 L POC VBG Base Excess 8.0 H* VBG Lactic Acid Carbon Dioxide 31 H POC Total CO2 Anion Gap POC BUN Creatinine Glucose 108 H POC Glucose Total Bilirubin 1.5 H Direct Bilirubin AST 70 H Lactate Dehydrogenase NT-Pro-B Natriuret Pep Total Protein 07/29/22 07/29/22 07/29/22 10:22 10:21 10:20 WBC RBC Hgb Hct Neut % (Auto) Lymph % (Auto) Lymph # (Auto) Dawes # (Auto) Immature Gran # Absolute Neutrophils D-Dimer 0.98 H POC VBG pH POC VBG pCO2 at Temp 67.0 H* POC VBG pO2 20 L POC VBG HCO3 37.7 H POC VBG Total CO2 40.0 H POC Venous O2 Sat 28.0 L POC VBG Base Excess 12.0 H* VBG Lactic Acid 2.3 H Carbon Dioxide POC Total CO2 35.0 H Anion Gap POC BUN 30 H Creatinine Glucose POC Glucose 172 H Total Bilirubin Direct Bilirubin AST Lactate Dehydrogenase NT-Pro-B Natriuret Pep Total Protein 07/29/22 07/29/22 10:20 10:20 WBC 19.1 H RBC Hgb 18.6 H Hct 51.8 H Neut % (Auto) 88.5 H Lymph % (Auto) 5.9 L Lymph # (Auto) 1.12 L Dawes # (Auto) 0.96 H Immature Gran # 0.06 H Absolute Neutrophils 16.89 H D-Dimer POC VBG pH POC VBG pCO2 at Temp POC VBG pO2 POC VBG HCO3 POC VBG Total CO2 POC Venous O2 Sat POC VBG Base Excess VBG Lactic Acid Carbon Dioxide POC Total CO2 Anion Gap POC BUN Creatinine Glucose POC Glucose Total Bilirubin 2.2 H Direct Bilirubin 0.3 H AST 75 H Lactate Dehydrogenase NT-Pro-B Natriuret Pep 1208.0 H Total Protein Meds: Medications Acetaminophen (Acetaminophen 325 Mg Tablet) 650 mg PO Q6HP PRN; Protocol PRN Reason: Per Pain Protocol/Fever > 101 Albuterol/Ipratropium (Ipratropium/Albuterol 3 Ml Ampul.Neb) 3 ml NEB QID [facility] Last Admin: 07/30/22 21:47 Dose: 3 ml Budesonide (Budesonide 0.5 Mg/2 Ml Ampul.Neb) 0.5 mg NEB Q12 [facility] Last Admin: 07/30/22 21:47 Dose: 0.5 mg Ceftriaxone Sodium (Ceftriaxone 1 Gm Vial) 1 gm IV Q24H [facility] Last Admin: 07/30/22 09:58 Dose: 1 gm Clopidogrel Bisulfate (Clopidogrel 75 Mg Tablet) 75 mg PO QDAY [facility] Last Admin: 07/30/22 09:55 Dose: 75 mg Diphenhydramine HCl (Diphenhydramine 25 Mg Capsule) 25 mg PO HSP PRN PRN Reason: Insomnia Last Admin: 07/31/22 01:23 Dose: 25 mg Docusate Sodium (Docusate Sodium 100 Mg Capsule) 100 mg PO BIDP PRN PRN Reason: Constipation Gabapentin (Gabapentin 300 Mg Capsule) 300 mg PO QHS [facility] Last Admin: 07/30/22 20:22 Dose: 300 mg Lactated Ringer's (Lactated Ringers) 1,000 mls @ 75 mls/hr IV .[id number] [facility] Last Admin: 07/31/22 06:37 Dose: Not Given Lactulose (Lactulose 20 Gm/30 Ml Oral.Pat) 10 gm PO DAILYP PRN PRN Reason: Constipation Lisinopril (Lisinopril 20 Mg Tablet) 20 mg PO DAILY [facility] Last Admin: 07/30/22 09:55 Dose: 20 mg Melatonin (Melatonin 3 Mg Tablet) 3 mg PO QPM [facility] Last Admin: 07/31/22 01:22 Dose: 3 mg Meloxicam (Meloxicam 7.5 Mg Tablet) 7.5 mg PO QDAY [facility]; Protocol Last Admin: 07/30/22 09:55 Dose: 7.5 mg Methylprednisolone Sodium Succinate (Methylprednisolone Sod Succ 40 Mg/Ml Vial) 20 mg IV Q8 [facility] Last Admin: 07/31/22 05:28 Dose: 20 mg Montelukast Sodium (Montelukast 10 Mg Tablet) 10 mg PO QHS [facility] Last Admin: 07/30/22 20:22 Dose: 10 mg Olanzapine (Olanzapine 5 Mg Tablet) 5 mg PO HSP PRN PRN Reason: Agitation Last Admin: 07/31/22 02:34 Dose: 5 mg Ondansetron HCl (Ondansetron 4 Mg/2 Ml Vial) 4 mg IV Q4HP PRN; Protocol PRN Reason: Nausea And Vomiting Senna (Sennosides 1 Tablet) 2 tab PO HSP PRN PRN Reason: Constipation Sodium Chloride (0.9 % Sodium Chloride 10 Ml Syringe) 10 ml IV Q8 [facility] Last Admin: 07/31/22 04:37 Dose: Not Given Tamsulosin HCl (Tamsulosin 0.4 Mg Capsule) 0.4 mg PO QDAY [facility] Last Admin: 07/30/22 09:55 Dose: 0.4 mg A/P Narrative A/P Narrative: Assessment and plan *Pulmonary fibrosis, acute exacerbation: -CTA chest showed severe pulmonary fibrosis with interval worsening -Will manage with IV Solu-Medrol (wean), DuoNebs, budesonide, pulmonary toileting, supplemental oxygen. -Patient is on IV ceftriaxone qd *COPD exacerbation: CTA chest without evidence of acute infiltrate -Will manage with empiric IV ceftriaxone, steroids, nebulization therapy, chest physio *Acute on chronic hypoxic hypercapnic respiratory failure: -Required BiPAP in ED, now on room air -Hypercapnia improving on follow-up VBG's. *Acute encephalopathy: Likely in the setting of hypercapnia and underlying dementia. Resolving. *Obstructive sleep apnea: on CPAP *h/o CAD with CABG/PCI: no acute EKG changes. Troponin negative. Continue Plavix *Hx stroke:, no focal deficits. On Plavix *Dementia with associated hallucinations, monitor *Diabetes mellitus 2: not on any diabetic medication. Will obtain A1c 5.5 *Hypertension: soft BP, hold NORA inhibitor *BPH, continue tamsulosin *Physical deconditioning: PT OT eval. -Will likely need SNF placement *DVT prophylaxis: lovenox Time Spent With Patient Time: Total time spent is greater than 50% in coordination of care (as documented) at patient's floor/unit and/or counseling patient: Subsequent: Total time with patient: 50 - 65 Minutes
--- NOTE | 2022-07-31 08:04 | EKG ---
[facility] Test Date: 2022-07-29 Pat Name: William Cortes Department: ED Room: Gender: Male [employer] Order Clerk: MANUEL : 1940 Requested By: Baldo Shah Order Number: [id number] Reading MD: Christian Solis M.D. Measurements Intervals [place] Rate: 118 P: 60 [place]: 128 QRS: 64 QRSD: 82 T: 47 QT: 311 QTc: 436 Interpretive Statements Sinus tachycardia Atrial premature complex Electronically Signed On 07-31-2022 8:04:47 PDT by Christian Solis M.D. /store/[email or web address]/[id number]
--- NOTE | 2022-07-31 08:13 | EKG ---
[facility] Test Date: 2022-07-31 Pat Name: William Cortes Department: MEDSUR Room: 114 Gender: Male Clinical Nutritionist: : 1940 Requested By: Baldomero Eugene Order Number: [id number] Reading MD: Christian Solis M.D. Measurements Intervals [place] Rate: 72 P: 64 [place]: 125 QRS: 34 QRSD: 89 T: 54 QT: 387 QTc: 423 Interpretive Statements Sinus rhythm Electronically Signed On 07-31-2022 8:13:31 PDT by Christian Solis M.D. /store/[email or web address]/[id number]
[2022-07-31] MEDS: TAMSULOSIN 0.4 MG CAPSULE PO SCH (08:32)
[2022-07-31] MEDS: MELOXICAM 7.5 MG TABLET PO SCH (08:32)
[2022-07-31] MEDS: CLOPIDOGREL 75 MG TABLET PO SCH (08:33)
[2022-07-31] MEDS: ENOXAPARIN 40 MG/0.4 ML SYRINGE SQ SCH (08:33)
[2022-07-31] MEDS: cefTRIAXone 1 GM VIAL IV SCH (08:33)
[2022-07-31] MEDS: IPRATROPIUM/ALBUTEROL 3 ML AMPUL.NEB NEB SCH ×4 (09:00→21:43)
[2022-07-31] MEDS: BUDESONIDE 0.5 MG/2 ML AMPUL.NEB NEB SCH ×2 (09:00→21:43)
--- NOTE | 2022-07-31 10:08 | Discharge Summary ---
Discharge Provider Provider IMPORTANT FOLLOW-UP INFORMATION FOR PCP: -decreased ACEI for soft BP *?SSS, asymptomatic: referral to cardiology Patient information: Note initiated : 07/31/22 at 10:03 am Service Date, if different from initiated Date: [] Patient: William Cortes 81 y/o M admitted on 07/29/22 for Respiratory Failure. Chief Complaint: [] Date of admission: 07/29/22 17:05 Discharge date: 08/01/22 Primary care physician: Dax Zheng MD Consults: 07/29/22 14:00 Consult to Physician [CONS] Stat Comment: Consulting Provider: Baldomero Eugene Reason For Exam: Physician to Consult COURSE Hospital Course Hospital course: History of present illness: Mr. Cortes is a 81 year old male with pulmonary fibrosis, asthma/COPD overlap syndrome, oxygen dependent, chronic hypoxic respiratory failure, obstructive sleep apnea on CPAP, CAD status post CABG and PCI, stroke, dementia with associated hallucinations, diabetes mellitus 2 with neuropathy hypertension, hyperlipidemia, BPH GERD, recurrent decubitus ulcer presented due to worsening shortness of breath. Patient was brought in by EMS. Patient is a limited historian. EMS noted that patient was satting in the 70s, they gave him DuoNebs treatment and his sats began to improve to 90s. Patient reported due to shortness of breath he was having some chest tightness. Patient reports he uses supplemental oxygen at home intermittently. He reports no fever, no chills, no sputum production or cough. On presentation patient was tachypneic with respiratory rate 37, tachycardic with heart rate 108-117, hypoxic of 79% on 2 L. Labs showed leukocytosis of 19,000, hemoglobin 18, platelets 260. VBG showed pH 7.35, evidence of hypercapnia with PCO2 67, HCO3 37. Elevated lactic acid of 2.3. Normal electrolytes and renal function, glucose 172. Total bilirubin 2.2, AST 75, ALT 30, alk phos 91. proBNP 1208. Procalcitonin 0.09. Troponin less than 0.02. CTA chest showed no PE however severe pulmonary fibrosis with interval worsening. 07/30. Patient breathing improved. This morning on 2 L and being weaned off. Hypercapnia improving on VBG. Electrolytes stable. Patient is weak and will likely need SNF placement 07/31 Patient breathing continue to improve. Denies cough this morning, denies shortness of breath at rest. Blood pressure soft, hold NORA inhibitor. Currently on room air. Nurse noted rhythm on telemetry overnight with rate fluctuating bradycardic and tachycardic, patient was asymptomatic. Referral to follow-up with cardiology to evaluate for sinus node dysfunction/sick sinus syndrome. 08/01 No overnight event or new complaints. Patient on room air. Patient needs SNF placement. Assessment and plan *Pulmonary fibrosis, acute exacerbation / COPD exacerbation -prednisone taper *Acute on chronic hypoxic hypercapnic respiratory failure: *Acute encephalopathy: *Dementia with associated hallucinations, *Obstructive sleep apnea: *h/o CAD with CABG/PCI: *Hx stroke: *Diabetes mellitus 2: *Hypertension: hold ACEI for soft BP *BPH: *Physical deconditioning: *?SSS: referral to cardiology Discharge diagnosis: Pulmonary fibrosis with acute exacerbation COPD exacerbation acute on chron Secondary discharge diagnosis: Acute on chronic hypoxic respite failure acute Encephalopathy dementia KRISTOPHER CAD history of stroke diabetes hypertension BPH deconditioning Time Spent with Patient Time attestation: Total time spent providing and/or coordinating discharge services: Time spent: Greater than 30 minutes EXAM Constitutional Vitals: Temp Pulse Resp BP Pulse Ox O2 Del Method O2 Flow Rate 97.4 F 76 97 H 106/58 95 Room Air 0 07/31/22 07:33 07/31/22 09:09 07/31/22 09:09 07/31/22 07:33 07/31/22 07:33 07/31/22 09:09 07/30/22 09:20 Discharge Data Data Completed and Pending Labs on day of discharge: Labs from last 24 hours 07/31/22 05:54 Sodium 138 Potassium 4.2 Chloride 102 Carbon Dioxide 28 Anion Gap 8.0 BUN 19 Creatinine 0.6 L GFR Calculation 93 Glucose 127 H Uric Acid 3.6 Calcium 9.3 Phosphorus 2.6 Magnesium 2.0 Total Bilirubin 0.9 Direct Bilirubin < 0.2 GGT 8 AST 36 ALT 24 Alkaline Phosphatase 59 Lactate Dehydrogenase 244 H Total Protein 5.8 L Albumin 3.3 Globulin 2.5 Albumin/Globulin Ratio 1.3 Triglycerides 79 Preliminary micro results at discharge 07/29/22 11:58 Blood Culture - Preliminary Blood 07/29/22 11:50 Blood Culture - Preliminary Blood Discharge Plan Patient/Caregiver Discharge Instructions Activity: increase activity as tolerated Diet: Cardiac Activity Restrictions/Additional Instructions: Referral to see cardiology in 5 to 14 days for evaluation of sick sinus syndrome, asymptomatic. Prescriptions: New prednisone 10 mg tablet 40 mg PO QDAY Qty: 1 0RF Rx Instructions: Take 40mg once daily for 2 days then 20mg daily for 2 days then 10mg daily x2 days then 5mg x2 days and stop Continued gabapentin 300 mg capsule 600 mg PO QHS montelukast [Singulair] 10 mg tablet 10 mg PO QHS Qty: 30 0RF clopidogrel 75 mg tablet 75 mg PO QDAY meloxicam 7.5 mg tablet 7.5 mg PO QDAY tamsulosin 0.4 mg capsule 0.4 mg PO QDAY Discontinued benazepril 20 mg tablet 20 mg PO QDAY Follow Up Plan Follow up with: Dax Zheng MD [Primary Care Provider] - Patient Disposition: Xfer SNF Prognosis: Fair Rehab Potential: Fair I certify that the patient requires SNF services: Yes Overall status at discharge: patient is progressing back to baseline Discharge Orders: Discharge Order (Routine); Ordered 08/01/22 Ordered By: Atul Aburto
[2022-07-31] MEDS: predniSONE 20 MG TABLET PO SCH (20:50)
[2022-07-31] MEDS: GABAPENTIN 300 MG CAPSULE PO SCH (20:51)
[2022-07-31] MEDS: MONTELUKAST 10 MG TABLET PO SCH (20:51)
[2022-08-01] MEDS: 0.9 % SODIUM CHLORIDE 10 ML SYRINGE IV SCH (05:31)
--- NOTE | 2022-08-01 07:35 | Internal Med Progress Note ---
SUBJECTIVE Subjective Patient information: Note initiated : 08/01/22 at 7:33 am Service Date, if different from initiated Date: [] Patient: William Cortes 81 y/o M admitted on 07/29/22 for Respiratory Failure. Chief Complaint: [] Interval history: History of present illness: Mr. Cortes is a 81 year old male with pulmonary fibrosis, asthma/COPD overlap syndrome, oxygen dependent, chronic hypoxic respiratory failure, obstructive sleep apnea on CPAP, CAD status post CABG and PCI, stroke, dementia with associated hallucinations, diabetes mellitus 2 with neuropathy hypertension, hyperlipidemia, BPH GERD, recurrent decubitus ulcer presented due to worsening shortness of breath. Patient was brought in by EMS. Patient is a limited historian. EMS noted that patient was satting in the 70s, they gave him DuoNebs treatment and his sats began to improve to 90s. Patient reported due to shortness of breath he was having some chest tightness. Patient reports he uses supplemental oxygen at home intermittently. He reports no fever, no chills, no sputum production or cough. On presentation patient was tachypneic with respiratory rate 37, tachycardic with heart rate 108-117, hypoxic of 79% on 2 L. Labs showed leukocytosis of 19,000, hemoglobin 18, platelets 260. VBG showed pH 7.35, evidence of hypercapnia with PCO2 67, HCO3 37. Elevated lactic acid of 2.3. Normal electrolytes and renal function, glucose 172. Total bilirubin 2.2, AST 75, ALT 30, alk phos 91. proBNP 1208. Procalcitonin 0.09. Troponin less than 0.02. CTA chest showed no PE however severe pulmonary fibrosis with interval worsening. 07/30. Patient breathing improved. This morning on 2 L and being weaned off. Hypercapnia improving on VBG. Electrolytes stable. Patient is weak and will likely need SNF placement 07/31 Patient breathing continue to improve. Denies cough this morning, denies shortness of breath at rest. Blood pressure soft, hold NORA inhibitor. Currently on room air. Nurse noted rhythm on telemetry overnight with rate fluctuating bradycardic and tachycardic, patient was asymptomatic. Referral to follow-up with cardiology to evaluate for sinus node dysfunction/sick sinus syndrome. 08/01 No overnight event or new complaints. Patient on room air. Patient needs SNF placement. Review of Systems: denies headache/fever/chills/nausea/vomiting/chest or abdominal pain/diarrhea. Otherwise see above. PHYSICAL EXAM General: Alert, Awake, No acute Distress Eyes/N/T: EOMI, no scleral icterus, Head/Neck: neck supple, full ROM, CV: RRR, 2/6SM, Pulm: mildly diminished b/l, no wheezing/rhonchi/rales, no respiratory distress Abd: soft, nontender, +BS x4 Ext: no clubbing/cyanosis/edema, nontender Neuro: Alert, no focal deficits, moves all extremities, , sensations intact b/l upper/lower Psychiatric: Skin: warm/dry, normal color Constitutional Vitals: Vital Signs Temp Pulse Resp BP Pulse Ox O2 Del Method O2 Flow Rate 97.5 F 76 18 105/75 96 Room Air 0 08/01/22 04:00 08/01/22 04:00 08/01/22 04:00 08/01/22 04:00 08/01/22 04:00 08/01/22 04:00 07/30/22 09:20 Period Temp Pulse Resp BP Sys/Quinteros Pulse Ox O2 Del Method O2 Flow Rate Last 24 Hr 97.2 F-98.6 F 72-86 15-22 90-110/54-75 95-98 Room Air-Room Air Intake and Output 07/31/22 08/01/22 08/01/22 19:59 03:59 11:59 Intake Total 120 240 Output Total 625 1 Balance -505 240 -1 Weight 57.243 kg 58.786 kg Intake & Output: Intake & Output 07/31/22 08/01/22 08/01/22 19:59 03:59 11:59 Intake Total 120 240 Output Total 625 1 Balance -505 240 -1 Weight 57.243 kg 58.786 kg Intake: Oral 120 240 Output: Void Amount 625 # of times incontinent of urine 1 Other: Meal Lunch Percent of Meal Consumed 75% Feeding Ability Assist with Tray Set Up Urine Appearance Clear Urine Color Yellow # Voids 1 OBJ DATA Labs 07/30/22 06:19 07/31/22 05:54 Labs: Abnormal Lab Results 07/31/22 07/30/22 07/30/22 05:54 07:30 06:19 WBC RBC Hgb Hct Neut % (Auto) Lymph % (Auto) Lymph # (Auto) Barron # (Auto) Immature Gran # Absolute Neutrophils D-Dimer POC VBG pH 7.63 H* POC VBG pCO2 at Temp 28.1 L POC VBG pO2 67 H POC VBG HCO3 29.5 H POC VBG Total CO2 30.0 H POC Venous O2 Sat 96.0 H POC VBG Base Excess 8.0 H* VBG Lactic Acid Carbon Dioxide POC Total CO2 Anion Gap 6.0 L POC BUN Creatinine 0.6 L 0.5 L Glucose 127 H 124 H POC Glucose Total Bilirubin Direct Bilirubin AST 46 H Lactate Dehydrogenase 244 H NT-Pro-B Natriuret Pep Total Protein 5.8 L 07/30/22 07/29/22 07/29/22 06:19 17:50 14:31 WBC RBC 4.52 L Hgb Hct Neut % (Auto) 86.8 H Lymph % (Auto) 9.3 L Lymph # (Auto) 1.02 L Barron # (Auto) Immature Gran # Absolute Neutrophils 9.53 H D-Dimer POC VBG pH POC VBG pCO2 at Temp 61.0 H* POC VBG pO2 20 L POC VBG HCO3 33.4 H POC VBG Total CO2 35.0 H POC Venous O2 Sat 29.0 L POC VBG Base Excess 8.0 H* VBG Lactic Acid Carbon Dioxide 31 H POC Total CO2 Anion Gap POC BUN Creatinine Glucose 108 H POC Glucose Total Bilirubin 1.5 H Direct Bilirubin AST 70 H Lactate Dehydrogenase NT-Pro-B Natriuret Pep Total Protein 07/29/22 07/29/22 07/29/22 10:22 10:21 10:20 WBC RBC Hgb Hct Neut % (Auto) Lymph % (Auto) Lymph # (Auto) Barron # (Auto) Immature Gran # Absolute Neutrophils D-Dimer 0.98 H POC VBG pH POC VBG pCO2 at Temp 67.0 H* POC VBG pO2 20 L POC VBG HCO3 37.7 H POC VBG Total CO2 40.0 H POC Venous O2 Sat 28.0 L POC VBG Base Excess 12.0 H* VBG Lactic Acid 2.3 H Carbon Dioxide POC Total CO2 35.0 H Anion Gap POC BUN 30 H Creatinine Glucose POC Glucose 172 H Total Bilirubin Direct Bilirubin AST Lactate Dehydrogenase NT-Pro-B Natriuret Pep Total Protein 07/29/22 07/29/22 10:20 10:20 WBC 19.1 H RBC Hgb 18.6 H Hct 51.8 H Neut % (Auto) 88.5 H Lymph % (Auto) 5.9 L Lymph # (Auto) 1.12 L Barron # (Auto) 0.96 H Immature Gran # 0.06 H Absolute Neutrophils 16.89 H D-Dimer POC VBG pH POC VBG pCO2 at Temp POC VBG pO2 POC VBG HCO3 POC VBG Total CO2 POC Venous O2 Sat POC VBG Base Excess VBG Lactic Acid Carbon Dioxide POC Total CO2 Anion Gap POC BUN Creatinine Glucose POC Glucose Total Bilirubin 2.2 H Direct Bilirubin 0.3 H AST 75 H Lactate Dehydrogenase NT-Pro-B Natriuret Pep 1208.0 H Total Protein Meds: Medications Acetaminophen (Acetaminophen 325 Mg Tablet) 650 mg PO Q6HP PRN; Protocol PRN Reason: Per Pain Protocol/Fever > 101 Last Admin: 07/31/22 08:32 Dose: 650 mg Albuterol/Ipratropium (Ipratropium/Albuterol 3 Ml Ampul.Neb) 3 ml NEB QID [facility] Last Admin: 07/31/22 21:43 Dose: 3 ml Budesonide (Budesonide 0.5 Mg/2 Ml Ampul.Neb) 0.5 mg NEB Q12 [facility] Last Admin: 07/31/22 21:43 Dose: 0.5 mg Ceftriaxone Sodium (Ceftriaxone 1 Gm Vial) 1 gm IV Q24H [facility] Last Admin: 07/31/22 08:33 Dose: 1 gm Clopidogrel Bisulfate (Clopidogrel 75 Mg Tablet) 75 mg PO QDAY [facility] Last Admin: 07/31/22 08:33 Dose: 75 mg Diphenhydramine HCl (Diphenhydramine 25 Mg Capsule) 25 mg PO HSP PRN PRN Reason: Insomnia Last Admin: 07/31/22 01:23 Dose: 25 mg Docusate Sodium (Docusate Sodium 100 Mg Capsule) 100 mg PO BIDP PRN PRN Reason: Constipation Enoxaparin Sodium (Enoxaparin 40 Mg/0.4 Ml Syringe) 40 mg SQ DAILY [facility] Last Admin: 07/31/22 08:33 Dose: 40 mg Gabapentin (Gabapentin 300 Mg Capsule) 300 mg PO QHS [facility] Last Admin: 07/31/22 20:51 Dose: 300 mg Lactulose (Lactulose 20 Gm/30 Ml Oral.Pat) 10 gm PO DAILYP PRN PRN Reason: Constipation Melatonin (Melatonin 3 Mg Tablet) 3 mg PO QPM [facility] Last Admin: 07/31/22 20:51 Dose: 3 mg Meloxicam (Meloxicam 7.5 Mg Tablet) 7.5 mg PO QDAY [facility]; Protocol Last Admin: 07/31/22 08:32 Dose: 7.5 mg Montelukast Sodium (Montelukast 10 Mg Tablet) 10 mg PO QHS [facility] Last Admin: 07/31/22 20:51 Dose: 10 mg Olanzapine (Olanzapine 5 Mg Tablet) 5 mg PO HSP PRN PRN Reason: Agitation Last Admin: 07/31/22 02:34 Dose: 5 mg Ondansetron HCl (Ondansetron 4 Mg/2 Ml Vial) 4 mg IV Q4HP PRN; Protocol PRN Reason: Nausea And Vomiting Prednisone (Prednisone 20 Mg Tablet) 40 mg PO BIDCC [facility] Last Admin: 07/31/22 20:50 Dose: 40 mg Senna (Sennosides 1 Tablet) 2 tab PO HSP PRN PRN Reason: Constipation Sodium Chloride (0.9 % Sodium Chloride 10 Ml Syringe) 10 ml IV Q8 [facility] Last Admin: 08/01/22 05:31 Dose: 10 ml Tamsulosin HCl (Tamsulosin 0.4 Mg Capsule) 0.4 mg PO QDAY [facility] Last Admin: 07/31/22 08:32 Dose: 0.4 mg A/P Narrative A/P Narrative: Assessment and plan *Pulmonary fibrosis, acute exacerbation: -CTA chest showed severe pulmonary fibrosis with interval worsening -Prednisone (wean), DuoNebs, budesonide, pulmonary toileting, supplemental oxygen. *COPD exacerbation: CTA chest without evidence of acute infiltrate -Will manage with empiric IV ceftriaxone, steroids, nebulization therapy, chest physio *Acute on chronic hypoxic hypercapnic respiratory failure: -Required BiPAP in ED, now on room air -Hypercapnia improving on follow-up VBG's. *Acute encephalopathy: Likely in the setting of hypercapnia and underlying dementia. Resolving. *Obstructive sleep apnea: on CPAP *h/o CAD with CABG/PCI: no acute EKG changes. Troponin negative. Continue Plavix *Hx stroke:, no focal deficits. On Plavix *Dementia with associated hallucinations, monitor *Diabetes mellitus 2: not on any diabetic medication. A1c 5.5 *Hypertension: soft BP, hold NORA inhibitor *BPH, continue tamsulosin *Physical deconditioning: PT OT eval. -Will likely need SNF placement *DVT prophylaxis: lovenox Time Spent With Patient Time: Total time spent is greater than 50% in coordination of care (as documented) at patient's floor/unit and/or counseling patient: Subsequent: Total time with patient: 35 - 49 minutes
[2022-08-01] MEDS: BUDESONIDE 0.5 MG/2 ML AMPUL.NEB NEB SCH (07:50)
[2022-08-01] MEDS: IPRATROPIUM/ALBUTEROL 3 ML AMPUL.NEB NEB SCH (07:50)
[2022-08-01] MEDS: CLOPIDOGREL 75 MG TABLET PO SCH (09:40)
[2022-08-01] MEDS: predniSONE 20 MG TABLET PO SCH (09:40)
[2022-08-01] MEDS: ENOXAPARIN 40 MG/0.4 ML SYRINGE SQ SCH (09:41)
[2022-08-01] MEDS: TAMSULOSIN 0.4 MG CAPSULE PO SCH (09:41)
[2022-08-01] MEDS: MELOXICAM 7.5 MG TABLET PO SCH (09:41)
[2022-08-01] MEDS: cefTRIAXone 1 GM VIAL IV SCH (10:10)
[2022-08-01] MEDS ORDERED: PNEUMOCOCCAL 23-VAL P-SAC VAC 0.5 ML SYRINGE IM ONE (13:30)
[2022-08-02] MEDS ORDERED: predniSONE 20 MG TABLET PO SCH (09:00)
== END 2022-08-01 13:30 | DRG 196 ==
LOC: ED 10:06 → ICU 17:05 → MEDSUR 07-30 17:39
PROVIDERS: ADMIT Internal Medicine; ATTEND Internal Medicine